=== PATIENT | female | born 1955 | race Caucasian/White ===

== ENCOUNTER 2019-02-01 08:03 | Day surgery (SDC) | payer MEDICARE, BC ==
[~2019-02-01 08:03] MED LIST: Lactated Ringers 1,000 ML IV SCH; Midazolam 1 MG/ML 2 ML SDV ONE; Propofol 200 MG/20 ML SDV ONE; Sodium Chloride 0.9% 10 ML SDV IV PRN; Sodium Chloride 0.9% 10 ML Syringe FLUSH PRN; Sodium Chloride 0.9% 2.5 ML Syringe FLUSH PRN
--- NOTE | 2019-02-01 09:17 | PCM.PREANE ---
Preanesthetic Assessment - Anesthesia/Transfusion/Family Hx Anesthesia History: Prior Anesthesia Without Reaction Family History of Anesthesia Reaction: No Transfusion History: Prior Transfusion Without Reaction Intubation History: Unknown - Review of Systems General: No Symptoms Pulmonary: No Symptoms Cardiovascular: No Symptoms Neurological: No Symptoms Other: Reports: None - Physical Assessment NPO Status Date: 01/31/19 Height: 5 ft 3 in Weight: 58.967 kg ASA Class: 2 Mental Status: Alert & Oriented x3 Airway Class: Mallampati = 2 Dentition: Reports: Normal Dentition ROM/Head Extension: Full Lungs: Clear to Auscultation, Normal Respiratory Effort Cardiovascular: Regular Rate, Regular Rhythm - Allergies Allergies/Adverse Reactions: Allergies Allergy/AdvReac Type Severity Reaction Status Date / Time aspirin Allergy Hives Verified 01/30/19 08:50 - Blood Blood Available: No - Anesthesia Plan Pre-Op Medication Ordered: None - Acknowledgements Anesthesia Type Planned: General Anesthesia Pt an Appropriate Candidate for the Planned Anesthesia: Yes Alternatives and Risks of Anesthesia Discussed w Pt/Guardian: Yes Pt/Guardian Understands and Agrees with Anesthesia Plan: Yes Additional Comments: PMH: prior hospital employee, smoker, htn, hld PLAN: tiva PreAnesthesia Questionnaire HEENT History: Reports: Cataract Cardiovascular History: Reports: High Cholesterol, Hypertension Other Respiratory History: has smoked for 40 years Gastrointestinal History: Reports: GERD Genitourinary History: Reports: 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: Musculoskeletal History: Reports: Back Pain, Chronic, Fracture Other Musculoskeletal History: hx of fx ribs Neurological History: Reports: Migraines Other Neuro History: no migraines for 10 years Endocrine/Metabolic History: Reports: None Hematologic History: Reports: Blood Transfusion(s) - Past Surgical History Female Surgical History: Reports: Other (See Below) Other Female Surgeries/Procedures: Laparoscopy - SUBSTANCE USE Smoking Status *Q: Current Every Day Smoker Tobacco Use Within Last Twelve Months: Cigarettes Recreational Drug Use History: No - HOME MEDS Home Medications: Home Meds Losartan Potassium 50 mg PO QAM 05/29/18 [History] Rosuvastatin Calcium 10 mg PO BEDTIME 05/29/18 [History] Pantoprazole [ProTONIX] 40 mg PO DAILY 01/30/19 [History] Sucralfate 1 gm PO QID 01/30/19 [History] - CURRENT (IN HOUSE) MEDS Current Meds: Current Medications Lactated Ringer's (Ringers, Lactated) 1,000 mls @ 125 mls/hr IV ASDIRECTED MARCELO Sodium Chloride (Saline Flush) 2.5 ml FLUSH ASDIRECTED PRN PRN Reason: Keep Vein Open Sodium Chloride (Normal Saline) 10 ml IV ASDIRECTED PRN PRN Reason: IV Use Discontinued Medications Midazolam HCl (Versed 1 Mg/Ml) Confirm Administered Dose 2 mg .ROUTE .STK-MED ONE Stop: 02/01/19 07:07 Propofol (Diprivan 20 Ml) Confirm Administered Dose 200 mg .ROUTE .STK-MED ONE Stop: 02/01/19 07:07
[2019-02-01] MEDS ORDERED: Lidocaine 2% 5 ML SDV ONE (10:18)
--- NOTE | 2019-02-01 10:50 | PCM.OPNOTE ---
- General Post-Op/Procedure Note Date of Surgery/Procedure: 02/01/19 Operative Procedure(s): Diagnostic EGD Findings: GERD, normal appearing esophagus Pre Op Diagnosis: GERD Post-Op Diagnosis: GERD Anesthesia Technique: MAC Primary Surgeon: Nickie Rivera Condition: Good
--- NOTE | 2019-02-01 11:22 | PCM.POSTAN ---
POST ANESTHESIA ASSESSMENT - MENTAL STATUS Mental Status: Alert, Oriented - RESPIRATORY Respiratory Status: Respiratory Rate WNL, Airway Patent, O2 Saturation Stable - CARDIOVASCULAR CV Status: Pulse Rate WNL, Blood Pressure Stable - GASTROINTESTINAL GI Status: No Symptoms - POST OP HYDRATION Hydration Status: Adequate & Stable
--- NOTE | 2019-02-01 11:22 | PCM48HPAN ---
Post Anesthesia Note - EVALUATION WITHIN 48HRS OF ANESTHETIC Vital Signs in Normal Range: Yes Patient Participated in Evaluation: Yes Respiratory Function Stable: Yes Airway Patent: Yes Cardiovascular Function Stable: Yes Hydration Status Stable: Yes Pain Control Satisfactory: Yes Nausea and Vomiting Control Satisfactory: Yes Mental Status Recovered: Yes Resp Rate: 14
--- NOTE | 2019-02-01 18:07 | OR ---
SURGEON: NICKIE RIVERA MD DATE OF PROCEDURE: 02/01/2019 PREOPERATIVE DIAGNOSIS: Gastroesophageal reflux disease. POSTOPERATIVE DIAGNOSIS: Gastroesophageal reflux disease. PROCEDURE PERFORMED: Diagnostic esophagogastroduodenoscopy. PRIMARY SURGEON: Endoscopist, Nickie Rivera MD. ANESTHESIA: MAC. INSTRUMENT USED: Olympus endoscope. EXTENT OF EXAM: To the second portion of duodenum. PREPARATION: Good. LIMITATIONS: None. INDICATION FOR EXAMINATION: The patient is a 63-year-old female who presents with retrosternal burning, refractory to [id number] PPI treatment. Recent esophagram showed mild presbyesophagus and moderate reflux as well as a small cardiac diverticula. She was switched to pantoprazole, but again is having no relief in her symptoms. The decision was made to perform a diagnostic EGD. I explained the procedure, expected perioperative course, and risks including bleeding, infection, or damage to surrounding structures including perforation. The patient verbalized understanding and wishes to proceed. PROCEDURE IN DETAIL: The patient was brought into the endoscopy suite and placed in a beach chair position. A time-out was completed verifying the patient's name, age, date of , allergies, and procedure to be performed. Monitored anesthesia care was induced and a bite block was placed in the patient's mouth. Continuous oxygen was provided via nasal cannula throughout the procedure. After adequate sedation was achieved, a well lubricated endoscope was placed in the patient's mouth and advanced under direct visualization to the second portion of duodenum. This appeared normal and a photograph was taken. The scope was then fully withdrawn while examining the color, texture, anatomy, and integrity of the mucosa of the upper GI tract. The duodenum appeared normal. The scope was then brought into the stomach and a photograph taken of the pylorus as well as the GE junction. The patient was found to have a small outpouching next to the GE junction. This appeared healthy and broad-based. Biopsies were taken of the gastric antrum, body, and fundus, and sent for histologic review and H. pylori testing, but overall the gastric mucosa appeared normal. The scope was then brought into the distal esophagus and a photograph was taken of the Z-line. There was no evidence of distal esophagitis or ulceration. A biopsy was taken 2 cm above the Z-line of the esophageal mucosa and sent to pathology. The remainder of the esophagus was normal. The scope was removed and the procedure terminated. The patient tolerated the procedure well and was taken to PACU in stable condition. ENDOSCOPIC DIAGNOSIS: Gastroesophageal reflux disease. RECOMMENDATIONS: Follow up in clinic in 2 weeks. TAI SINGH /[id number]
== END 2019-02-01 11:30 | disposition home or self-care (01) ==
LOC: MW.SDS 08:03
PROVIDERS: ATTEND Surgery
DX: K21.0 Gastro-esophageal reflux disease with esophagitis (principal); K22.8 Other specified diseases of esophagus; K31.4 Gastric diverticulum; K29.50 Unspecified chronic gastritis without bleeding; I10 Essential (primary) hypertension; E78.00 Pure hypercholesterolemia, unspecified; K21.9 Gastro-esophageal reflux disease without esophagitis; F17.210 Nicotine dependence, cigarettes, uncomplicated; Z88.6 Allergy status to analgesic agent; Z79.899 Other long term (current) drug therapy
CPT/HCPCS: 43239; J2001; J2250; J2704; J7120; 88305; 88312

== ENCOUNTER 2019-04-11 23:15 | Inpatient (IN) | payer MEDICARE, BC ==
[2019-04-11] MEDS ORDERED: Ketorolac 30 MG/ML SDV IVPUSH ONE (23:30)
[2019-04-11] MEDS ORDERED: Sodium Chloride 0.9% 10 ML Syringe FLUSH PRN (23:30)
[2019-04-11] MEDS ORDERED: Sodium Chloride 0.9% 1,000 ML IV ONE (23:30)
[2019-04-11] MEDS ORDERED: Sodium Chloride 0.9% 2.5 ML Syringe FLUSH PRN (23:30)
[2019-04-11] MEDS ORDERED: LORazepam 2 MG/ML SDV IVPUSH ONE (23:30)
--- NOTE | 2019-04-11 23:36 | EDM.PDOC ---
ED HPI GENERAL MEDICAL PROBLEM - General Chief Complaint: Chest Pain Stated Complaint: CHEST PAIN Time Seen by Provider: 04/11/19 23:19 - History of Present Illness INITIAL COMMENTS - FREE TEXT/NARRATIVE: HISTORY AND PHYSICAL: History of present illness: The patient is a 63-year-old female who has been following with Dr. Nassar in the clinic as well as our train engineer Dr. Andrade for burning chest pain that has been episodic since the summer and now presents to the ED with similar. The patient initially had EGD performed in [place] and was diagnosed with esophagitis and GERD and was placed on medications which include Protonix and sucralfate. After that test did not yield an answer to her symptoms she then met with our train engineer and had an outpatient echocardiogram and a Cardiolite stress test on April 03. I reviewed those results and the echo revealed an EF of 55-60% and trace tricuspid valve regurg but otherwise no abnormalities and her Cardiolite stress test revealed an ejection fraction of 70% and no acute ischemic changes. A cough with wheezing and saw Dr. Nassar on Monday and had a chest x-ray and was diagnosed with bronchitis. She was placed on antibiotic steroid and inhaler and says she is feeling better. The patient says that she is a smoker of less than one pack per day for many years and denies drug use. She also tells me that Dr. Nassar has been following her WBC count as it has been mildly elevated consistently for the last few months with an eosinophilic shift and he is not sure what to make of that. The patient comes in this evening saying that she is having muscle cramps and spasms in her right thigh area and after that starts to occur she gets the chest discomfort in her mid chest without radiation. She's not having any shortness of breath fevers chills abdominal pain nausea or vomiting and she is eating and drinking normally. She states that her upper respiratory symptoms of earlier this week are improving. She denies any numbness tingling or weakness in her legs and says that it's only her right lower extremity that has this cramping episodic pain. She has not noticed any swelling of the leg in changes. She is not having any lower back pain or neck pain and denies any trauma. She says that with the coughing last week and over the weekend she has had some right-sided chest pain because she thinks she coughed very hard. She took Tylenol prior to coming here but nothing else. She tells me that she has spoken with Dr. Nassar about the muscle cramping in her right leg which is not new today and has been ongoing for the last several weeks. She is telling me that the chest discomfort and the leg cramps that she is having are both not new or different than prior episodes but she feels like that they were more intense and did not respond to the Tylenol. The patient also tells me that she has had back issues in the past but has never had an MRI only x-rays with the chiropractor and in fact went to the chiropractor today and says that she felt like a muscle spasm in her leg was better. She has never been diagnosed with disc disease or sciatica. When I push her she says that there is discomfort at her right hip and it seems to go to the lateral thigh. Down her leg nor is she having any bowel or bladder disturbances. The patient denies that she has had any fevers Review of systems: As per history of present illness and below otherwise all systems reviewed and negative. Past medical history: As per history of present illness and as reviewed below otherwise noncontributory. Surgical history: As per history of present illness and as reviewed below otherwise noncontributory. Social history: No reported history of drug or alcohol abuse. Family history: As per history of present illness and as reviewed below otherwise noncontributory. Physical exam: General: Well-developed well-nourished thin female who is nontoxic and vital signs were noted by me. She is moving all extremities without defects or deficits HEENT: Atraumatic, normocephalic, pupils reactive, negative for conjunctival pallor or scleral icterus, mucous membranes moist, throat clear, neck supple, nontender, trachea midline. Lungs: Clear to auscultation, breath sounds equal bilaterally, chest with some mild discomfort which is reproducible on palpation of the upper anterior chest wall area in the sternal area but there are no defects deformities crepitus. There is no wheezing stridor or work of breathing Heart: S1S2, regular, negative for clicks, rubs, or JVD. Abdomen: Soft, nondistended, nontender. Negative for masses or hepatosplenomegaly. NeABS Pelvis: Stable nontender. Genitourinary: Deferred. Rectal: Deferred. Extremities: Atraumatic, negative for cords or calf pain. Neurovascular unremarkable.There is no pedal edema or leg asymmetry and more specifically at the right lower extremity there are no palpable bony deformities no soft tissue or compartment swelling and no soft tissue changes. The patient is able to passively and actively range of motion at the hip without much discomfort and there is no joint fluid fullness warmth or effusion. Neuro: Awake, alert, oriented. Cranial nerves II through XII unremarkable. Cerebellum unremarkable. Motor and sensory unremarkable throughout. Exam nonfocal. The patient has a strong femoral pulse on the right and has triphasic dorsalis pedis and posterior tibial arteries on Doppler and there is no evidence of any soft tissue changes compartment swelling or temperature changes. Diagnostics: EKG chest x-ray CBC CMP CPK troponin TSH magnesium level lactic acid UA with reflex CRP sedimentation rate blood culture 2 X-ray of right hip with pelvis, CT scan of the lumbar spine CTA chest Therapeutics: IV fluids Ativan Toradol Patient mentioned to me that her last CBC revealed a WBC count that was elevated in the computer it is 14.89. This test was performed on April [address] Nassar. There was a 10% eosinophil count and Dr. Nassar did not know what to make of that. Today her WBC count is higher at 16.61 but there is no significant elevation of the eosinophil count. All testing results were discussed with the patient and with Dr. Rajput at 1:50 AM. At this point her leg pain is likely attributed to her degenerative disc space and sclerosis of her L4-L5 region and her chest pain is likely attributed to this mediastinal mass. Dr. Rajput has agreed to admit the patient for observation to repeat her lab values and to follow-up on the cultures. At this point he would likely not to place her on any antibiotics as of this may skew her numbers and the patient is already taking and antibiotic that Dr. Nassar gave her on Monday but she is unsure of the name. She is aware that this mediastinal mass does need to be addressed and at this point I do not have the ability to transport her to [place] to have this done emergently nor does Dr. Rajput nor I feel that this needs to be done emergently. We will admit her here and follow her numbers and pending those results and any culture results plan for transfer to [place] for more immediate hematology oncology consultation or connect her with outpatient hematology oncology. The patient is aware of these conversation and care plan. Impression: Lower extremity cramping and atypical chest pain episodic acute on chronic; L4- L5 disc space narrowing with sclerotic changes/degenerative disc disease Mediastinal mass with leukocytosis, etiology unclear Definitive disposition and diagnosis as appropriate pending reevaluation and review of above. chest/right leg Pain Score (Numeric/FACES): 9 - Related Data Allergies Allergy/AdvReac Type Severity Reaction Status Date / Time aspirin Allergy Hives Verified 04/11/19 23:24 Home Meds: Home Meds Losartan Potassium 50 mg PO QAM 05/29/18 [History] Rosuvastatin Calcium 10 mg PO BEDTIME 05/29/18 [History] Famotidine 20 mg PO DAILY 04/11/19 [History] Nortriptyline 10 mg PO BEDTIME 04/11/19 [History] Past Medical History HEENT History: Reports: Cataract Cardiovascular History: Reports: High Cholesterol, Hypertension Other Respiratory History: has smoked for 40 years Gastrointestinal History: Reports: GERD Genitourinary History: Reports: 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 ED EXAM, GENERAL - Physical Exam Exam: See Below (See dictation) Course - Vital Signs Last Recorded V/S: Last Vital Signs Temp 35.9 C 04/11/19 23:15 Pulse 70 04/12/19 02:02 Resp 14 04/12/19 02:02 BP 123/58 L 04/12/19 02:02 Pulse Ox 98 04/12/19 02:02 - Orders/Labs/Meds Orders: Active Orders 24 hr Category Date Time Status Patient Status [ADT] Stat ADT 04/12/19 02:03 Active Cardiac Monitoring [RC] . DIRECTED Care 04/11/19 23:28 Active EKG Documentation Completion [RC] STAT Care 04/11/19 23:28 Active Oxygen Therapy, ED [RC] ASDIRECTED Care 04/11/19 23:28 Active Pulse Oximetry [RC] ASDIRECTED Care 04/11/19 23:28 Active CULTURE BLOOD [BC] Stat Lab 04/12/19 00:37 Received CULTURE BLOOD [BC] Stat Lab 04/12/19 00:48 Results UA RFX FABIO AND CULT IF INDIC [URIN] Stat Lab 04/11/19 23:29 Ordered Sodium Chloride 0.9% [Saline Flush] Med 04/11/19 23:30 Active 10 ml FLUSH ASDIRECTED PRN Sodium Chloride 0.9% [Saline Flush] Med 04/11/19 23:30 Active 2.5 ml FLUSH ASDIRECTED PRN Blood Culture x2 Reflex Set [OM.PC] Stat Oth 04/12/19 00:34 Ordered Saline Lock Insert [OM.PC] Stat Oth 04/11/19 23:28 Ordered Medication Orders Sodium Chloride (Saline Flush) 10 ml FLUSH ASDIRECTED PRN PRN Reason: Keep Vein Open Last Admin: 04/11/19 23:39 Dose: 10 ml Sodium Chloride (Saline Flush) 2.5 ml FLUSH ASDIRECTED PRN PRN Reason: Keep Vein Open Last Admin: 04/11/19 23:38 Dose: 2.5 ml Labs: Laboratory Tests 04/11/19 04/11/19 04/11/19 Range/Units 23:26 23:26 23:26 WBC 16.61 H (4.0-11.0) K/uL RBC 4.40 (4.30-5.90) M/uL Hgb 13.1 (12.0-16.0) g/dL Hct 38.6 (36.0-46.0) % MCV 87.7 (80.0-98.0) fL MCH 29.8 (27.0-32.0) pg MCHC 33.9 (31.0-37.0) g/dL RDW Std Deviation 47.5 (28.0-62.0) fl RDW Coeff of Citlaly 15 (11.0-15.0) % Plt Count 462 H (150-400) K/uL MPV 10.00 (7.40-12.00) fL Neut % (Auto) 76.2 (48.0-80.0) % Lymph % (Auto) 17.0 (16.0-40.0) % [place] % (Auto) 6.7 (0.0-15.0) % Eos % (Auto) 0.0 (0.0-7.0) % Baso % (Auto) 0.1 (0.0-1.5) % Neut # (Auto) 12.7 H (1.4-5.7) K/uL Lymph # (Auto) 2.8 H (0.6-2.4) K/uL [place] # (Auto) 1.1 H (0.0-0.8) K/uL Eos # (Auto) 0.0 (0.0-0.7) K/uL Baso # (Auto) 0.0 (0.0-0.1) K/uL Nucleated RBC % 0.0 /100WBC Nucleated RBCs # 0 K/uL ESR (0-29) mm/hr Lactate 3.4 H (0.20-2.00) mmol/L Sodium 138 (136-145) mmol/L Potassium 4.3 (3.5-5.1) mmol/L Chloride 102 (98-107) mmol/L Carbon Dioxide 23.8 (21.0-32.0) mmol/L BUN 21 H (7.0-18.0) mg/dL Creatinine 1.1 H (0.6-1.0) mg/dL Est Cr Clr Drug Dosing TNP Estimated GFR (MDRD) 49.8 ml/min Glucose 147 H (74-106) mg/dL Calcium 10.3 H (8.5-10.1) mg/dL Magnesium 2.3 (1.8-2.4) mg/dL Total Bilirubin 0.3 (0.2-1.0) mg/dL AST 44 H (15-37) IU/L ALT 29 (14-63) IU/L Alkaline Phosphatase 126 H (46-116) U/L Creatine Kinase 41 (26-308) U/L Troponin I < 0.050 (0.000-0.056) ng/mL C-Reactive Protein (0.00-0.90) mg/dL Total Protein 7.6 (6.4-8.2) g/dL Albumin 3.5 (3.4-5.0) g/dL Globulin 4.1 H (2.6-4.0) g/dL Albumin/Globulin Ratio 0.9 (0.9-1.6) TSH 3rd Generation 0.97 (0.36-3.74) uIU/mL 04/11/19 04/11/19 Range/Units 23:26 23:26 WBC (4.0-11.0) K/uL RBC (4.30-5.90) M/uL Hgb (12.0-16.0) g/dL Hct (36.0-46.0) % MCV (80.0-98.0) fL MCH (27.0-32.0) pg MCHC (31.0-37.0) g/dL RDW Std Deviation (28.0-62.0) fl RDW Coeff of Citlaly (11.0-15.0) % Plt Count (150-400) K/uL MPV (7.40-12.00) fL Neut % (Auto) (48.0-80.0) % Lymph % (Auto) (16.0-40.0) % [place] % (Auto) (0.0-15.0) % Eos % (Auto) (0.0-7.0) % Baso % (Auto) (0.0-1.5) % Neut # (Auto) (1.4-5.7) K/uL Lymph # (Auto) (0.6-2.4) K/uL [place] # (Auto) (0.0-0.8) K/uL Eos # (Auto) (0.0-0.7) K/uL Baso # (Auto) (0.0-0.1) K/uL Nucleated RBC % /100WBC Nucleated RBCs # K/uL ESR 57 H (0-29) mm/hr Lactate (0.20-2.00) mmol/L Sodium (136-145) mmol/L Potassium (3.5-5.1) mmol/L Chloride (98-107) mmol/L Carbon Dioxide (21.0-32.0) mmol/L BUN (7.0-18.0) mg/dL Creatinine (0.6-1.0) mg/dL Est Cr Clr Drug Dosing Estimated GFR (MDRD) ml/min Glucose (74-106) mg/dL Calcium (8.5-10.1) mg/dL Magnesium (1.8-2.4) mg/dL Total Bilirubin (0.2-1.0) mg/dL AST (15-37) IU/L ALT (14-63) IU/L Alkaline Phosphatase (46-116) U/L Creatine Kinase (26-308) U/L Troponin I (0.000-0.056) ng/mL C-Reactive Protein 0.60 (0.00-0.90) mg/dL Total Protein (6.4-8.2) g/dL Albumin (3.4-5.0) g/dL Globulin (2.6-4.0) g/dL Albumin/Globulin Ratio (0.9-1.6) TSH 3rd Generation (0.36-3.74) uIU/mL Meds: Medications Generic Name Dose Route Start Last Admin Trade Name Sergeiq PRN Reason Stop Dose Admin Sodium Chloride 10 ml 04/11/19 23:30 04/11/19 23:39 Saline Flush FLUSH 10 ml ASDIRECTED PRN Administration Keep Vein Open Sodium Chloride 2.5 ml 04/11/19 23:30 04/11/19 23:38 Saline Flush FLUSH 2.5 ml ASDIRECTED PRN Administration Keep Vein Open Discontinued Medications Generic Name Dose Route Start Last Admin Trade Name Freq PRN Reason Stop Dose Admin Sodium Chloride 1,000 mls @ 999 mls/hr 04/11/19 23:30 04/11/19 23:38 Normal Saline IV 04/12/19 00:30 999 mls/hr STAT ONE Administration Iopamidol 50 ml 04/12/19 00:51 04/12/19 00:51 Isovue Multipack-370 (76%) IVPUSH 04/12/19 00:52 50 ml ONETIME ONE Administration Ketorolac Tromethamine 30 mg 04/11/19 23:30 04/11/19 23:40 Toradol IVPUSH 04/11/19 23:31 30 mg ONETIME ONE Administration Lorazepam 0.5 mg 04/11/19 23:30 04/11/19 23:39 Ativan IVPUSH 04/11/19 23:31 0.5 mg ONETIME ONE Administration Departure - Departure Time of Disposition: 02:15 Disposition: Refer to Observation Condition: Good Clinical Impression: Mediastinal mass Leukocytosis Qualifiers: Leukocytosis type: unspecified Qualified Code(s): D72.829 - Elevated white blood cell count, unspecified - Discharge Information Referrals: Wilner Nassar MD [Primary Care Provider] - Forms: ED Department Discharge - My Orders Last 24 Hours: My Active Orders 04/11/19 23:28 Cardiac Monitoring [RC] . DIRECTED EKG Documentation Completion [RC] STAT Oxygen Therapy, ED [RC] ASDIRECTED Pulse Oximetry [RC] ASDIRECTED Saline Lock Insert [OM.PC] Stat 04/11/19 23:29 UA RFX FABIO AND CULT IF INDIC [URIN] Stat 04/11/19 23:30 Sodium Chloride 0.9% [Saline Flush] 10 ml FLUSH ASDIRECTED PRN Sodium Chloride 0.9% [Saline Flush] 2.5 ml FLUSH ASDIRECTED PRN 04/12/19 00:34 Blood Culture x2 Reflex Set [OM.PC] Stat 04/12/19 00:37 CULTURE BLOOD [BC] Stat 04/12/19 00:48 CULTURE BLOOD [BC] Stat 04/12/19 02:03 Patient Status [ADT] Stat - Assessment/Plan Last 24 Hours: My Active Orders 04/11/19 23:28 Cardiac Monitoring [RC] . DIRECTED EKG Documentation Completion [RC] STAT Oxygen Therapy, ED [RC] ASDIRECTED Pulse Oximetry [RC] ASDIRECTED Saline Lock Insert [OM.PC] Stat 04/11/19 23:29 UA RFX FABIO AND CULT IF INDIC [URIN] Stat 04/11/19 23:30 Sodium Chloride 0.9% [Saline Flush] 10 ml FLUSH ASDIRECTED PRN Sodium Chloride 0.9% [Saline Flush] 2.5 ml FLUSH ASDIRECTED PRN 04/12/19 00:34 Blood Culture x2 Reflex Set [OM.PC] Stat 04/12/19 00:37 CULTURE BLOOD [BC] Stat 04/12/19 00:48 CULTURE BLOOD [BC] Stat 04/12/19 02:03 Patient Status [ADT] Stat
[2019-04-12 00:12] LABS: BLOOD UREA NITROGEN,BUN 21 mg/dL (7.0-18.0); CARBON DIOXIDE,CO2 23.8 mmol/L (21.0-32.0); CHLORIDE,CL 102 mmol/L (98-107); GLUCOSE RANDOM 147 mg/dL (74-106); POTASSIUM,K 4.3 mmol/L (3.5-5.1); SODIUM,NA 138 mmol/L (136-145)
--- NOTE | 2019-04-12 00:27 | CR ---
INDICATION: Right hip pain TECHNIQUE: AP pelvis and two views right hip COMPARISON: None FINDINGS: Bones: Alignment is normal. No fractures or bone lesions. Joint spaces: Unremarkable. Soft tissues: Unremarkable. IMPRESSION: Negative. Dictated by Pascual Bunn MD @ 04/12/2019 12:24:00 AM Dictated by: Pascual Bunn MD @ 04/12/2019 00:24:05 (Electronically Signed)
--- NOTE | 2019-04-12 00:31 | CR ---
Indication: Chest pain Technique: Chest 1 view Comparison: April 09, 2019 Findings/Impression: Normal cardiac size. There is some increased density surrounding the aortic arch. This appears more prominent when compared to the prior study. Although this could represent normal overlapping vascular structures, consider chest CT with IV contrast for further evaluation. Lungs are mildly hyperexpanded. No focal infiltrate, effusion, or pneumothorax. No acute osseous abnormality. Dictated by Sharyn Lucio MD @ Apr 12 2019 12:29AM Signed by Dr. Sharyn Lucio @ Apr 12 2019 12:29AM
--- NOTE | 2019-04-12 00:33 | CT ---
INDICATION: Low back pain. TECHNIQUE: CT of the lumbar spine without contrast. Coronal and sagittal reformats are included. COMPARISON: None. FINDINGS: Five lumbar type vertebral bodies. Mild levoconvex scoliosis with the apex at L3. No definite acute fractures. Age indeterminate although likely chronic T11 superior endplate compression fracture with superimposed central Schmorl`s node. Minimal vertebral body height loss. No fractures elsewhere. Cystic structure within the right adnexa measures up to 3.4 centimeters and is likely ovarian in origin. Partially visualized left renal cyst. Findings at individual levels as follows: Interspaces: Mild disc height loss at L1-2 and L2-3. Moderate disc height loss at L3-4. Advanced disc height loss at L4-5 and L5-S1. Subchondral sclerosis and degenerative endplate irregularity is present prominently at L4-5 as well as to a lesser degree within the anterior inferior L3 endplate. Spinal canal and neural foramina: T12-L1: No spinal canal or neural foraminal narrowing L1-2: Mild disc bulge. Mild bilateral facet hypertrophy. No substantial spinal canal or neural foraminal narrowing. L2-3: Mild disc bulge. Moderate bilateral facet hypertrophy. No substantial spinal canal or neural foraminal narrowing. L3-4: Moderate disc bulge and trace retrolisthesis. Mild bilateral facet hypertrophy. Mild spinal canal narrowing. Mild bilateral neural foraminal narrowing. L4-5: Moderate eccentric right-sided disc bulge with accompanying endplate osteophytes on the right. Mild left and moderate right facet hypertrophy. Mild spinal canal narrowing. Mild left and moderate right neural foraminal narrowing. L5-S1: Mild circumferential disc bulge. Mild bilateral facet hypertrophy. Mild right and moderate left neural foraminal narrowing. No substantial spinal canal narrowing. Imaged SI joints: Mild arthrosis. Imaged sacrum: No focal lesions. IMPRESSION: 1. No definite acute fractures. Age-indeterminate although likely chronic T11 superior endplate fracture with superimposed central Schmorl`s node and overall mild vertebral body height loss. No traumatic lumbar malalignment. 2. Mild levoconvex scoliosis with apex at L3. 3. Multilevel lumbar spondylosis with disc degeneration most advanced at the L4-5 level. 4. At L4-5, there is moderate right neural foraminal narrowing. 5. At L5-S1, there is moderate left neural foraminal narrowing. 6. Scattered additional sites of low-grade neural foraminal narrowing at the remaining lumbar levels. 7. No high-grade spinal canal stenosis. Mild spinal canal stenosis at L3-4 and L4-5. 8. 3.4 centimeter cystic structure within the right adnexa is likely ovarian in origin. Given the patient`s age, consider further characterization with ultrasound. Please note that all CT scans at this facility use dose modulation, iterative reconstruction, and/or weight-based dosing when appropriate to reduce radiation dose to as low as reasonably achievable. Dictated by Louis Mike MD @ Apr 13 2019 8:56AM Signed by Dr. Louis Mike @ Apr 13 2019 9:09AM
[2019-04-12] MEDS ORDERED: Iopamidol 755 MG/ML 500 ML Multipack Bottle IVPUSH ONE (00:51)
--- NOTE | 2019-04-12 01:34 | CT ---
INDICATION: Chest pain TECHNIQUE: CT chest pulmonary angiogram acquired with IV contrast. 50 cc Isovue 370 COMPARISON: None FINDINGS: Cardiovascular structures: Diagnostics no sick study for pulmonary embolus due to suboptimal opacification the pulmonary arteries. Heart size is normal. No sign of aneurysm or dissection in the thoracic aorta. Mediastinum and shaneka: 7.0 centimeter x 5.5 centimeter non enhancing anterior mediastinal mass. This is not appear to emanate from the thyroid gland. Lungs: Clear. Pleura and pericardium: No effusions. Chest wall and axilla: No mass or adenopathy. Bones: No significant findings. Upper abdomen: Unremarkable. IMPRESSION: 7.0 centimeter x 5.5 centimeter non enhancing anterior mediastinal mass. This does not appear to be contiguous with the thyroid gland. Correlate with myelogenous disease clinically. Nondiagnostic study for pulmonary embolus. Normal appearing thoracic aorta. Dictated by Pascual Bunn MD @ 04/12/2019 1:33:32 AM Please note that all CT scans at this facility use dose modulation, iterative reconstruction, and/or weight-based dosing when appropriate to reduce radiation dose to as low as reasonably achievable. Dictated by: Pacsual Bunn MD @ 04/12/2019 01:33:39 (Electronically Signed)
[2019-04-12] MEDS ORDERED: Acetaminophen 325 MG Tab PO PRN (03:11)
[2019-04-12] MEDS: cefTRIAXone 1 GM in Sodium Chloride 0.9% 50 ML IV SCH (03:26)
[2019-04-12] MEDS: Sodium Chloride 0.9% 1,000 ML IV SCH ×3 (03:27→20:37)
[2019-04-12 06:53] LABS: POTASSIUM,K 4.9 mmol/L (3.5-5.1)
[2019-04-12] MEDS: Morphine 2 MG/ML Syringe IVPUSH PRN ×2 (08:39→13:25)
--- NOTE | 2019-04-12 09:41 | PCM.HP.2 ---
H&P History of Present Illness - General Date of Service: 04/12/19 Admit Problem/Dx: Admission Diagnosis/Problem Admission Diagnosis/Problem Leukocytosis Source of Information: Patient History Limitations: Reports: No Limitations - History of Present Illness Initial Comments - Free Text/Narative: This 63 reji old female with pmh of tobacco use for 40+ years, HTN, dyslipidemia and GERD presented to the ED with chest pain. She was seen by PCP 3 days ago with wheezing and increased sputum production, she was started on inhaler, Doxycycline and Dexamethasone for bronchitis. CXR then was negative for infiltrate. She reports this pain is across her chest and is a heaviness and "bubbly" feeling inside at times. She denies fevers at home. Reports increase green sputum at times. She has had extensive testing for GERD with EGD and biopsies. She was noted to have gastritis and take Famotidine for this. She also reported leg pain that is in the posterior thigh and hurts worse when she is going from a sitting to standing position. She denies back pain sore from where she saw the chiropractor. No numbness or tingling to leg. No loss of sensation. Is able to bend leg without significant increase in pain. In the ED leukocytosis noted at 16,610, hgb 13.1, platelets 462, lactate elevated at 3.4. BUN 21, Cr 1.1 AST 44, Alk phos 126. UA negative. CXR obtained which revealed mild fullness in mediastinal region, CT chest with contrast recommended, this was obtained and revealed a 7.0 x 5.5 cm anterior mediastinal mass. She was treated with IVFs, and pain medication. Admitted observation for chest pain and new mediastinal mass. PCP, Dr Nassar. right leg Pain Score (Numeric/FACES): 8 - Related Data Allergies/Adverse Reactions: Allergies Allergy/AdvReac Type Severity Reaction Status Date / Time aspirin Allergy Hives Verified 04/12/19 03:19 Home Medications: Home Meds Losartan Potassium 50 mg PO QAM 05/29/18 [History] Rosuvastatin Calcium 10 mg PO BEDTIME 05/29/18 [History] Famotidine 20 mg PO DAILY 04/11/19 [History] Nortriptyline 10 mg PO BEDTIME 04/11/19 [History] Albuterol Sulfate [Albuterol Sulfate Hfa] 2 puff Q8HR 04/12/19 [History] Doxycycline [Vibramycin] 100 mg BIDPC 04/12/19 [History] dexAMETHasone [Dexamethasone] 4 mg PO BID 04/12/19 [History] Past Medical History HEENT History: Reports: Cataract Cardiovascular History: Reports: High Cholesterol, Hypertension Other Respiratory History: has smoked for 40 years Gastrointestinal History: Reports: GERD Genitourinary History: Reports: None FRONT FACER History: Reports: Musculoskeletal History: Reports: Back Pain, Chronic, Fracture Other Musculoskeletal History: hx of fx ribs Neurological History: Reports: Other (See Below) Other Neuro History: hx of motion sickness Endocrine/Metabolic History: Reports: None. Denies: Diabetes, Type II Hematologic History: Reports: Blood Transfusion(s) - Infectious Disease History Infectious Disease History: Reports: Chicken Pox - Past Surgical History GI Surgical History: Reports: Colonoscopy, EGD Female Surgical History: Reports: Other (See Below) Other Female Surgeries/Procedures: Laparoscopy Social & Family History - Family History Family Medical History: Noncontributory - Tobacco Use Smoking Status *Q: Current Every Day Smoker Years of Tobacco use: 40 Packs/Tins Daily: 1 Used Tobacco, but Quit: No Second Hand Smoke Exposure: No - Caffeine Use Caffeine Use: Reports: Coffee - Alcohol Use Alcohol Use History: No Alcohol Use Frequency: Rarely - Recreational Drug Use Recreational Drug Use: No H&P Review of Systems - Review of Systems: Review Of Systems: See Below General: Reports: Malaise, Weakness, Fatigue. Denies: Fever, Chills HEENT: Denies: Headaches, Sinus Congestion, Sore Throat Pulmonary: Reports: Shortness of Breath, Wheezing, Pleuritic Chest Pain, Cough, Sputum. Denies: Hemoptysis Cardiovascular: Reports: Chest Pain (across chest) Gastrointestinal: Reports: No Symptoms. Denies: Abdominal Pain, Black Stool, Bloody Stool, Nausea, Vomiting Genitourinary: Reports: No Symptoms. Denies: Dysuria, Frequency, Burning Musculoskeletal: Reports: Leg Pain (R posterior thigh pain) Skin: Reports: No Symptoms Psychiatric: Reports: No Symptoms Neurological: Reports: No Symptoms Hematologic/Lymphatic: Reports: No Symptoms Immunologic: Reports: No Symptoms Exam - Exam Exam: See Below - Vital Signs Vital Signs: Last Vital Signs Temp 98 F 04/12/19 07:05 Pulse 65 04/12/19 07:05 Resp 18 04/12/19 07:05 BP 140/67 04/12/19 07:05 Pulse Ox 96 04/12/19 07:05 Weight: 54.749 kg - Exam General: Alert, Oriented Neck: Supple, Trachea Midline, Full Range of Motion. No: Lymphadenopathy Lungs: Normal Respiratory Effort, Rhonchi, Wheezing Cardiovascular: Regular Rate, Regular Rhythm, Normal S1, Normal S2 GI/Abdominal Exam: Normal Bowel Sounds, Soft, Non-Tender Extremities: Normal Inspection, Normal Range of Motion, Other (tenderness to upper calf) Neuro Extensive - Mental Status: Alert, Oriented x3, Normal Mood/Affect Neuro Extensive - Motor, Sensory, Reflexes: CN II-XII Intact Psychiatric: Alert, Normal Affect, Normal Mood - Patient Data Lab Results Last 24 hrs: Laboratory Results - last 24 hr 04/11/19 04/11/19 04/11/19 Range/Units 23:26 23:26 23:26 WBC 16.61 H (4.0-11.0) K/uL RBC 4.40 (4.30-5.90) M/uL Hgb 13.1 (12.0-16.0) g/dL Hct 38.6 (36.0-46.0) % MCV 87.7 (80.0-98.0) fL MCH 29.8 (27.0-32.0) pg MCHC 33.9 (31.0-37.0) g/dL RDW Std Deviation 47.5 (28.0-62.0) fl RDW Coeff of Citlaly 15 (11.0-15.0) % Plt Count 462 H (150-400) K/uL MPV 10.00 (7.40-12.00) fL Neut % (Auto) 76.2 (48.0-80.0) % Lymph % (Auto) 17.0 (16.0-40.0) % [place] % (Auto) 6.7 (0.0-15.0) % Eos % (Auto) 0.0 (0.0-7.0) % Baso % (Auto) 0.1 (0.0-1.5) % Neut # (Auto) 12.7 H (1.4-5.7) K/uL Lymph # (Auto) 2.8 H (0.6-2.4) K/uL [place] # (Auto) 1.1 H (0.0-0.8) K/uL Eos # (Auto) 0.0 (0.0-0.7) K/uL Baso # (Auto) 0.0 (0.0-0.1) K/uL Nucleated RBC % 0.0 /100WBC Nucleated RBCs # 0 K/uL ESR (0-29) mm/hr Lactate 3.4 H (0.20-2.00) mmol/L Sodium 138 (136-145) mmol/L Potassium 4.3 (3.5-5.1) mmol/L Chloride 102 (98-107) mmol/L Carbon Dioxide 23.8 (21.0-32.0) mmol/L BUN 21 H (7.0-18.0) mg/dL Creatinine 1.1 H (0.6-1.0) mg/dL Est Cr Clr Drug Dosing TNP Estimated GFR (MDRD) 49.8 ml/min Glucose 147 H (74-106) mg/dL Calcium 10.3 H (8.5-10.1) mg/dL Magnesium 2.3 (1.8-2.4) mg/dL Total Bilirubin 0.3 (0.2-1.0) mg/dL AST 44 H (15-37) IU/L ALT 29 (14-63) IU/L Alkaline Phosphatase 126 H (46-116) U/L Creatine Kinase 41 (26-308) U/L Troponin I < 0.050 (0.000-0.056) ng/mL C-Reactive Protein (0.00-0.90) mg/dL Total Protein 7.6 (6.4-8.2) g/dL Albumin 3.5 (3.4-5.0) g/dL Globulin 4.1 H (2.6-4.0) g/dL Albumin/Globulin Ratio 0.9 (0.9-1.6) TSH 3rd Generation 0.97 (0.36-3.74) uIU/mL Urine Color Urine Appearance Urine pH (5.0-8.0) Ur Specific [place] (1.001-1.035) Urine Protein (NEGATIVE) mg/dL Urine Glucose (UA) (NEGATIVE) mg/dL Urine Ketones (NEGATIVE) mg/dL Urine Occult Blood (NEGATIVE) Urine Nitrite (NEGATIVE) Urine Bilirubin (NEGATIVE) Urine Urobilinogen (<2.0) EU/dL Ur Leukocyte Esterase (NEGATIVE) 04/11/19 04/11/19 04/12/19 Range/Units 23:26 23:26 02:20 WBC (4.0-11.0) K/uL RBC (4.30-5.90) M/uL Hgb (12.0-16.0) g/dL Hct (36.0-46.0) % MCV (80.0-98.0) fL MCH (27.0-32.0) pg MCHC (31.0-37.0) g/dL RDW Std Deviation (28.0-62.0) fl RDW Coeff of Citlaly (11.0-15.0) % Plt Count (150-400) K/uL MPV (7.40-12.00) fL Neut % (Auto) (48.0-80.0) % Lymph % (Auto) (16.0-40.0) % [place] % (Auto) (0.0-15.0) % Eos % (Auto) (0.0-7.0) % Baso % (Auto) (0.0-1.5) % Neut # (Auto) (1.4-5.7) K/uL Lymph # (Auto) (0.6-2.4) K/uL [place] # (Auto) (0.0-0.8) K/uL Eos # (Auto) (0.0-0.7) K/uL Baso # (Auto) (0.0-0.1) K/uL Nucleated RBC % /100WBC Nucleated RBCs # K/uL ESR 57 H (0-29) mm/hr Lactate (0.20-2.00) mmol/L Sodium (136-145) mmol/L Potassium (3.5-5.1) mmol/L Chloride (98-107) mmol/L Carbon Dioxide (21.0-32.0) mmol/L BUN (7.0-18.0) mg/dL Creatinine (0.6-1.0) mg/dL Est Cr Clr Drug Dosing Estimated GFR (MDRD) ml/min Glucose (74-106) mg/dL Calcium (8.5-10.1) mg/dL Magnesium (1.8-2.4) mg/dL Total Bilirubin (0.2-1.0) mg/dL AST (15-37) IU/L ALT (14-63) IU/L Alkaline Phosphatase (46-116) U/L Creatine Kinase (26-308) U/L Troponin I (0.000-0.056) ng/mL C-Reactive Protein 0.60 (0.00-0.90) mg/dL Total Protein (6.4-8.2) g/dL Albumin (3.4-5.0) g/dL Globulin (2.6-4.0) g/dL Albumin/Globulin Ratio (0.9-1.6) TSH 3rd Generation (0.36-3.74) uIU/mL Urine Color YELLOW Urine Appearance CLEAR Urine pH 5.5 (5.0-8.0) Ur Specific [place] 1.020 (1.001-1.035) Urine Protein NEGATIVE (NEGATIVE) mg/dL Urine Glucose (UA) NEGATIVE (NEGATIVE) mg/dL Urine Ketones NEGATIVE (NEGATIVE) mg/dL Urine Occult Blood NEGATIVE (NEGATIVE) Urine Nitrite NEGATIVE (NEGATIVE) Urine Bilirubin NEGATIVE (NEGATIVE) Urine Urobilinogen 0.2 (<2.0) EU/dL Ur Leukocyte Esterase NEGATIVE (NEGATIVE) 04/12/19 04/12/19 04/12/19 Range/Units 06:28 06:28 06:28 WBC 16.83 H (4.0-11.0) K/uL RBC 3.96 L (4.30-5.90) M/uL Hgb 11.5 L (12.0-16.0) g/dL Hct 35.1 L (36.0-46.0) % MCV 88.6 (80.0-98.0) fL MCH 29.0 (27.0-32.0) pg MCHC 32.8 (31.0-37.0) g/dL RDW Std Deviation 48.3 (28.0-62.0) fl RDW Coeff of Citlaly 15 (11.0-15.0) % Plt Count 385 (150-400) K/uL MPV 9.70 (7.40-12.00) fL Neut % (Auto) 69.1 (48.0-80.0) % Lymph % (Auto) 24.0 (16.0-40.0) % [place] % (Auto) 6.7 (0.0-15.0) % Eos % (Auto) 0.1 (0.0-7.0) % Baso % (Auto) 0.1 (0.0-1.5) % Neut # (Auto) 11.6 H (1.4-5.7) K/uL Lymph # (Auto) 4.0 H (0.6-2.4) K/uL [place] # (Auto) 1.1 H (0.0-0.8) K/uL Eos # (Auto) 0.0 (0.0-0.7) K/uL Baso # (Auto) 0.0 (0.0-0.1) K/uL Nucleated RBC % 0.0 /100WBC Nucleated RBCs # 0 K/uL ESR (0-29) mm/hr Lactate 2.4 H (0.20-2.00) mmol/L Sodium 141 (136-145) mmol/L Potassium 4.9 (3.5-5.1) mmol/L Chloride 107 (98-107) mmol/L Carbon Dioxide 23.0 (21.0-32.0) mmol/L BUN 21 H (7.0-18.0) mg/dL Creatinine 1.0 (0.6-1.0) mg/dL Est Cr Clr Drug Dosing 46.40 Estimated GFR (MDRD) 55.6 ml/min Glucose 95 (74-106) mg/dL Calcium 9.4 (8.5-10.1) mg/dL Magnesium (1.8-2.4) mg/dL Total Bilirubin (0.2-1.0) mg/dL AST (15-37) IU/L ALT (14-63) IU/L Alkaline Phosphatase (46-116) U/L Creatine Kinase (26-308) U/L Troponin I (0.000-0.056) ng/mL C-Reactive Protein (0.00-0.90) mg/dL Total Protein (6.4-8.2) g/dL Albumin (3.4-5.0) g/dL Globulin (2.6-4.0) g/dL Albumin/Globulin Ratio (0.9-1.6) TSH 3rd Generation (0.36-3.74) uIU/mL Urine Color Urine Appearance Urine pH (5.0-8.0) Ur Specific [place] (1.001-1.035) Urine Protein (NEGATIVE) mg/dL Urine Glucose (UA) (NEGATIVE) mg/dL Urine Ketones (NEGATIVE) mg/dL Urine Occult Blood (NEGATIVE) Urine Nitrite (NEGATIVE) Urine Bilirubin (NEGATIVE) Urine Urobilinogen (<2.0) EU/dL Ur Leukocyte Esterase (NEGATIVE) Result Diagrams: 04/12/19 06:28 04/12/19 06:28 [place] Results Last 24 hrs: Microbiology 04/12/19 00:48 Anaerobic Blood Culture - Final Blood - Venous - Lab Draw EKG INTERPRETATION Rhythm: NSR - Problem List (1) Chest pain SNOMED Code(s): 10024119 ICD Code: R07.9 - CHEST PAIN, UNSPECIFIED Status: Acute Current Visit: Yes (2) Bronchitis SNOMED Code(s): 66634371 ICD Code: J40 - BRONCHITIS, NOT SPECIFIED ACUTE OR CHRONIC Status: Acute Current Visit: Yes (3) Leukocytosis SNOMED Code(s): 529479720, 255571789 ICD Code: D72.829 - ELEVATED WHITE BLOOD CELL COUNT, UNSPECIFIED Status: Acute Current Visit: Yes Qualifiers: Leukocytosis type: unspecified Qualified Code(s): D72.829 - Elevated white blood cell count, unspecified (4) Mediastinal mass Status: Acute Current Visit: Yes (5) GERD (gastroesophageal reflux disease) SNOMED Code(s): 044544682 ICD Code: K21.9 - GASTRO-ESOPHAGEAL REFLUX DISEASE WITHOUT ESOPHAGITIS Status: Acute Current Visit: No Problem List Initiated/Reviewed/Updated: Yes Orders Last 24hrs: Active Orders 24 hr Category Date Time Status Patient Status [ADT] Stat ADT 04/12/19 02:03 Active Pulse Oximetry [RC] ASDIRECTED Care 04/11/19 23:28 Active Regular Diet [DIET] Diet 04/12/19 Breakfast Active CULTURE BLOOD [BC] Stat Lab 04/12/19 00:37 Received CULTURE BLOOD [BC] Stat Lab 04/12/19 00:48 Results LACTIC ACID,WHOLE BLOOD [BG] Routine Lab 04/12/19 12:00 Ordered PERIPH BLOOD SMEAR PATHOLOGIST [HEME] Routine Lab 04/12/19 06:28 Received Acetaminophen [Tylenol] Med 04/12/19 03:11 Active 650 mg PO Q6H PRN Acetaminophen/HYDROcodone [[place] 325-5 MG] Med 04/12/19 09:40 Ordered 1 tab PO Q4H PRN Morphine Med 04/12/19 08:15 Active 2 mg IVPUSH Q3H PRN Sodium Chloride 0.9% [Normal Saline] 1,000 ml Med 04/12/19 03:15 Active IV ASDIRECTED Sodium Chloride 0.9% [Saline Flush] Med 04/11/19 23:30 Active 10 ml FLUSH ASDIRECTED PRN Sodium Chloride 0.9% [Saline Flush] Med 04/11/19 23:30 Active 2.5 ml FLUSH ASDIRECTED PRN cefTRIAXone [Rocephin] 1 gm Med 04/12/19 03:15 Active Sodium Chloride 0.9% [Normal Saline] 50 ml IV Q24H Blood Culture x2 Reflex Set [OM.PC] Stat Oth 04/12/19 00:34 Ordered Saline Lock Insert [OM.PC] Stat Oth 04/11/19 23:28 Ordered Medication Orders Acetaminophen (Tylenol) 650 mg PO Q6H PRN PRN Reason: Pain Last Admin: 04/12/19 03:27 Dose: 650 mg Ceftriaxone Sodium 1 gm/ (Sodium Chloride) 50 mls @ 100 mls/hr IV Q24H [facility] Last Admin: 04/12/19 03:26 Dose: 100 mls/hr Sodium Chloride (Normal Saline) 1,000 mls @ 125 mls/hr IV ASDIRECTED MARCELO Last Admin: 04/12/19 03:27 Dose: 125 mls/hr Morphine Sulfate (Morphine) 2 mg IVPUSH Q3H PRN PRN Reason: Pain Last Admin: 04/12/19 08:39 Dose: 2 mg Sodium Chloride (Saline Flush) 10 ml FLUSH ASDIRECTED PRN PRN Reason: Keep Vein Open Last Admin: 04/11/19 23:39 Dose: 10 ml Sodium Chloride (Saline Flush) 2.5 ml FLUSH ASDIRECTED PRN PRN Reason: Keep Vein Open Last Admin: 04/11/19 23:38 Dose: 2.5 ml Assessment/Plan Comment:: This 63 year old female admitted with bronchitis and medistinal mass 1. Mediastinal mass: new, patient is aware of CT findings. I contact [facility] who recommended I speak with pulmonology regarding possible bronchoscopy. I spoke with Dr Hunt, who will review images and call back, but he may feel it is better suited to consult cardiothoracic surgeon for a mediastinoscopy to obtain biospy of mass. He will call back. I did speak with PCP, Dr Nassar, he is aware of findings and attempts at obtaining outpatient biopsy plan. [place] for chest pain, likely related to mass. Peripheral smear pending. 2. Bronchitis: Hold Doxycyline, continue with Rocephin and breathing treatments PRN. Monitor leukocytosis. 3. elevated lactic acid: 3.4 on arrival treated with fluid resuscitation, improved to 1.9. Will monitor, appears no toxic. 4. Leg pain: Improved this morning with pain medication. More musculoskeletal, pain to posterior. obtain doppler to rule out DVT VTE prophylaxis: Lovenox. Dispo: 1-2 days pending improvement - Mortality Measure Prognosis:: Good
[2019-04-12] MEDS ORDERED: Sodium Chloride 0.9% 500 ML IV SCH ×2 (10:30→11:30)
[2019-04-12] MEDS: Acetaminophen/HYDROcodone 325-5 MG Tab PO PRN ×3 (10:38→23:42)
[2019-04-12] MEDS ORDERED: Albuterol 8 GM Inhaler INH PRN (12:50)
[2019-04-12] MEDS: Enoxaparin 40 MG/0.4 ML Syringe SUBCUT SCH (14:15)
--- NOTE | 2019-04-12 16:11 | US ---
Right lower extremity deep venous ultrasound: Duplex and color flow imaging was obtained of the right common femoral, superficial femoral, popliteal, posterior tibial and anterior tibial veins. Normal phasic flow, augmentation and compression is seen. Impression: No evidence of deep venous thrombosis within the right lower extremity. Diagnostic code #1 MTDD
[2019-04-12] MEDS: Nortriptyline 10 MG Cap PO SCH (20:36)
[2019-04-12] MEDS: Rosuvastatin 10 MG Tab PO SCH (20:36)
[2019-04-13] MEDS: Morphine 2 MG/ML Syringe IVPUSH PRN (02:06)
[2019-04-13] MEDS: cefTRIAXone 1 GM in Sodium Chloride 0.9% 50 ML IV SCH (03:04)
[2019-04-13] MEDS: Sodium Chloride 0.9% 1,000 ML IV SCH ×3 (05:41→22:27)
[2019-04-13 06:52] LABS: BLOOD UREA NITROGEN,BUN 10 mg/dL (7.0-18.0); CARBON DIOXIDE,CO2 24.5 mmol/L (21.0-32.0); CHLORIDE,CL 105 mmol/L (98-107); GLUCOSE RANDOM 83 mg/dL (74-106); POTASSIUM,K 3.9 mmol/L (3.5-5.1); SODIUM,NA 139 mmol/L (136-145)
[2019-04-13] MEDS: Losartan 50 MG Tab PO SCH (08:36)
[2019-04-13] MEDS: Famotidine 20 MG Tab PO SCH (08:36)
[2019-04-13] MEDS: Acetaminophen/HYDROcodone 325-5 MG Tab PO PRN ×2 (11:02→22:28)
[2019-04-13] MEDS: Enoxaparin 40 MG/0.4 ML Syringe SUBCUT SCH (14:24)
--- NOTE | 2019-04-13 18:59 | PCM.PN ---
- General Info Date of Service: 04/13/19 - Review of Systems Systems Review Comment:: patient report pain in leg and chest, with cough - Patient Data Vitals - Most Recent: Last Vital Signs Temp 37.0 C 04/13/19 15:00 Pulse 75 04/13/19 15:00 Resp 18 04/13/19 15:00 BP 171/74 H 04/13/19 15:00 Pulse Ox 96 04/13/19 15:00 Weight - Most Recent: 54.749 kg I&O - Last 24 Hours: Intake & Output 04/13/19 04/13/19 04/13/19 06:59 14:59 22:59 Intake Total 2253 3310 Output Total 1950 1500 Balance 303 1810 Lab Results Last 24 Hours: Laboratory Results - last 24 hr 04/12/19 04/13/19 04/13/19 Range/Units 06:28 05:45 05:45 WBC 15.09 H (4.0-11.0) K/uL RBC 4.07 L (4.30-5.90) M/uL Hgb 11.8 L (12.0-16.0) g/dL Hct 36.2 (36.0-46.0) % MCV 88.9 (80.0-98.0) fL MCH 29.0 (27.0-32.0) pg MCHC 32.6 (31.0-37.0) g/dL RDW Std Deviation 49.1 (28.0-62.0) fl RDW Coeff of Citlaly 15 (11.0-15.0) % Plt Count 321 (150-400) K/uL MPV 10.30 (7.40-12.00) fL Neut % (Auto) 56.2 (48.0-80.0) % Lymph % (Auto) 30.7 (16.0-40.0) % [place] % (Auto) 9.4 (0.0-15.0) % Eos % (Auto) 3.4 (0.0-7.0) % Baso % (Auto) 0.3 (0.0-1.5) % Neut # (Auto) 8.5 H (1.4-5.7) K/uL Lymph # (Auto) 4.6 H (0.6-2.4) K/uL Adams # (Auto) 1.4 H (0.0-0.8) K/uL Eos # (Auto) 0.5 (0.0-0.7) K/uL Baso # (Auto) 0.1 (0.0-0.1) K/uL Nucleated RBC % 0.0 /100WBC Nucleated RBCs # 0 K/uL Smear Path Review SENT TO PATHOLOGY Sodium 139 (136-145) mmol/L Potassium 3.9 (3.5-5.1) mmol/L Chloride 105 (98-107) mmol/L Carbon Dioxide 24.5 (21.0-32.0) mmol/L BUN 10 (7.0-18.0) mg/dL Creatinine 0.7 (0.6-1.0) mg/dL Est Cr Clr Drug Dosing 66.28 mL/min Estimated GFR (MDRD) > 60.0 ml/min Glucose 83 (74-106) mg/dL Calcium 8.9 (8.5-10.1) mg/dL Med Orders - Current: Current Medications Acetaminophen (Tylenol) 650 mg PO Q6H PRN PRN Reason: Pain Last Admin: 04/12/19 03:27 Dose: 650 mg Hydrocodone Bitart/Acetaminophen ([place] 325-5 Mg) 1 tab PO Q4H PRN PRN Reason: Pain Last Admin: 04/13/19 11:02 Dose: 1 tab Albuterol (Ventolin Hfa) 0 gm INH Q4H PRN PRN Reason: SOB/wheezing Enoxaparin Sodium (Lovenox) 40 mg SUBCUT Q24H [facility] Last Admin: 04/13/19 14:24 Dose: 40 mg Famotidine (Pepcid) 20 mg PO DAILY [facility] Last Admin: 04/13/19 08:36 Dose: 20 mg Ceftriaxone Sodium 1 gm/ (Sodium Chloride) 50 mls @ 100 mls/hr IV Q24H [facility] Last Admin: 04/13/19 03:04 Dose: 100 mls/hr Sodium Chloride (Normal Saline) 1,000 mls @ 125 mls/hr IV ASDIRECTED [facility] Last Admin: 04/13/19 14:24 Dose: 125 mls/hr Losartan Potassium (Cozaar) 50 mg PO QAM [facility] Last Admin: 04/13/19 08:36 Dose: 50 mg Morphine Sulfate (Morphine) 2 mg IVPUSH Q3H PRN PRN Reason: Pain Last Admin: 04/13/19 02:06 Dose: 2 mg Nortriptyline HCl (Nortriptyline) 10 mg PO BEDTIME [facility] Last Admin: 04/12/19 20:36 Dose: 10 mg Rosuvastatin Calcium (Crestor) 10 mg PO BEDTIME [facility] Last Admin: 04/12/19 20:36 Dose: 10 mg Sodium Chloride (Saline Flush) 10 ml FLUSH ASDIRECTED PRN PRN Reason: Keep Vein Open Last Admin: 04/11/19 23:39 Dose: 10 ml Sodium Chloride (Saline Flush) 2.5 ml FLUSH ASDIRECTED PRN PRN Reason: Keep Vein Open Last Admin: 04/11/19 23:38 Dose: 2.5 ml Discontinued Medications Sodium Chloride (Normal Saline) 1,000 mls @ 999 mls/hr IV STAT ONE Stop: 04/12/19 00:30 Last Admin: 04/11/19 23:38 Dose: 999 mls/hr Sodium Chloride (Normal Saline) 500 mls @ 999 mls/hr IV .BOLUS [facility] Sodium Chloride (Normal Saline) 500 mls @ 999 mls/hr IV BOLUS [facility] Stop: 04/12/19 12:01 Last Admin: 04/12/19 11:44 Dose: 999 mls/hr Iopamidol (Isovue Multipack-370 (76%)) 50 ml IVPUSH ONETIME ONE Stop: 04/12/19 00:52 Last Admin: 04/12/19 00:51 Dose: 50 ml Ketorolac Tromethamine (Toradol) 30 mg IVPUSH ONETIME ONE Stop: 04/11/19 23:31 Last Admin: 04/11/19 23:40 Dose: 30 mg Lorazepam (Ativan) 0.5 mg IVPUSH ONETIME ONE Stop: 04/11/19 23:31 Last Admin: 04/11/19 23:39 Dose: 0.5 mg - Exam General: Alert, Oriented Lungs: Clear to Auscultation, Normal Respiratory Effort Cardiovascular: Regular Rate, Regular Rhythm GI/Abdominal Exam: Normal Bowel Sounds, Soft, Non-Tender Extremities: Non-Tender, No Pedal Edema Skin: Warm, Dry, Intact Neurological: No New Focal Deficit - Problem List Review Problem List Initiated/Reviewed/Updated: Yes - Plan Plan:: This 63 year old female admitted with bronchitis and medistinal mass 1. Mediastinal mass: Awaiting a call back from Dr Hunt, who will review images , but he may feel it is better suited to consult cardiothoracic surgeon for a mediastinoscopy to obtain biospy of mass. [place] for chest pain, likely related to mass. Peripheral smear pending. 2. Bronchitis continue with Rocephin and breathing treatments PRN. Monitor leukocytosis. 4. Leg pain: Improved norco. More musculoskeletal, pain to posterior. obtain doppler to rule out DVT VTE prophylaxis: Lovenox. Dispo: 1-2 days pending improvement
[2019-04-13] MEDS: Rosuvastatin 10 MG Tab PO SCH (20:21)
[2019-04-13] MEDS: Nortriptyline 10 MG Cap PO SCH (20:21)
[2019-04-14] MEDS: cefTRIAXone 1 GM in Sodium Chloride 0.9% 50 ML IV SCH (02:46)
[2019-04-14] MEDS: Sodium Chloride 0.9% 1,000 ML IV SCH ×3 (07:15→23:36)
[2019-04-14] MEDS: Acetaminophen/HYDROcodone 325-5 MG Tab PO PRN ×3 (08:47→21:15)
[2019-04-14] MEDS: Famotidine 20 MG Tab PO SCH (08:47)
[2019-04-14] MEDS: Losartan 50 MG Tab PO SCH (08:47)
--- NOTE | 2019-04-14 09:43 | PCM.PN ---
- General Info Date of Service: 04/14/19 Admission Dx/Problem (Free Text): Admission Diagnosis/Problem Admission Diagnosis/Problem Leukocytosis, chest pain, cough, anterior mediastinal mass Subjective Update: The patient is a 63-year-old lady who had presented to the emergency department for admission on April 12, 2019 secondary to chest pain, cough, leukocytosis and increased sputum production. The patient had been noted to have a 7 x 6 cm anterior mediastinal mass. The patient says that she is not doing better today. She is having considerable pain ambulating. The pain is located predominantly in the right hip. She is also having pain in her right knee as well. The patient has been tolerating her diet and her pain has been controlled. Functional Status: Reports: Pain Controlled - Review of Systems General: Reports: No Symptoms HEENT: Reports: No Symptoms Pulmonary: Reports: Shortness of Breath, Cough Cardiovascular: Reports: No Symptoms Gastrointestinal: Reports: No Symptoms Genitourinary: Reports: No Symptoms Musculoskeletal: Reports: Leg Pain, Joint Pain Skin: Reports: No Symptoms Neurological: Reports: No Symptoms Psychiatric: Reports: No Symptoms - Patient Data Vitals - Most Recent: Last Vital Signs Temp 36.5 C 04/14/19 07:15 Pulse 74 04/14/19 07:15 Resp 16 04/14/19 07:15 BP 146/66 H 04/14/19 08:47 Pulse Ox 95 04/14/19 07:15 Weight - Most Recent: 54.749 kg I&O - Last 24 Hours: Intake & Output 04/13/19 04/14/19 04/14/19 22:59 06:59 14:59 Intake Total 3310 1769 Output Total 1500 1000 Balance 1810 769 Med Orders - Current: Current Medications Acetaminophen (Tylenol) 650 mg PO Q6H PRN PRN Reason: Pain Last Admin: 04/12/19 03:27 Dose: 650 mg Hydrocodone Bitart/Acetaminophen ([place] 325-5 Mg) 1 tab PO Q4H PRN PRN Reason: Pain Last Admin: 04/14/19 08:47 Dose: 1 tab Albuterol (Ventolin Hfa) 0 gm INH Q4H PRN PRN Reason: SOB/wheezing Enoxaparin Sodium (Lovenox) 40 mg SUBCUT Q24H [facility] Last Admin: 04/13/19 14:24 Dose: 40 mg Famotidine (Pepcid) 20 mg PO DAILY [facility] Last Admin: 04/14/19 08:47 Dose: 20 mg Ceftriaxone Sodium 1 gm/ (Sodium Chloride) 50 mls @ 100 mls/hr IV Q24H [facility] Last Admin: 04/14/19 02:46 Dose: 100 mls/hr Sodium Chloride (Normal Saline) 1,000 mls @ 125 mls/hr IV ASDIRECTED [facility] Last Admin: 04/14/19 07:15 Dose: 125 mls/hr Losartan Potassium (Cozaar) 50 mg PO QAM [facility] Last Admin: 04/14/19 08:47 Dose: 50 mg Morphine Sulfate (Morphine) 2 mg IVPUSH Q3H PRN PRN Reason: Pain Last Admin: 04/13/19 02:06 Dose: 2 mg Nortriptyline HCl (Nortriptyline) 10 mg PO BEDTIME [facility] Last Admin: 04/13/19 20:21 Dose: 10 mg Rosuvastatin Calcium (Crestor) 10 mg PO BEDTIME [facility] Last Admin: 04/13/19 20:21 Dose: 10 mg Sodium Chloride (Saline Flush) 10 ml FLUSH ASDIRECTED PRN PRN Reason: Keep Vein Open Last Admin: 04/11/19 23:39 Dose: 10 ml Sodium Chloride (Saline Flush) 2.5 ml FLUSH ASDIRECTED PRN PRN Reason: Keep Vein Open Last Admin: 04/11/19 23:38 Dose: 2.5 ml Discontinued Medications Sodium Chloride (Normal Saline) 1,000 mls @ 999 mls/hr IV STAT ONE Stop: 04/12/19 00:30 Last Admin: 04/11/19 23:38 Dose: 999 mls/hr Sodium Chloride (Normal Saline) 500 mls @ 999 mls/hr IV .BOLUS [facility] Sodium Chloride (Normal Saline) 500 mls @ 999 mls/hr IV BOLUS [facility] Stop: 04/12/19 12:01 Last Admin: 04/12/19 11:44 Dose: 999 mls/hr Iopamidol (Isovue Multipack-370 (76%)) 50 ml IVPUSH ONETIME ONE Stop: 04/12/19 00:52 Last Admin: 04/12/19 00:51 Dose: 50 ml Ketorolac Tromethamine (Toradol) 30 mg IVPUSH ONETIME ONE Stop: 04/11/19 23:31 Last Admin: 04/11/19 23:40 Dose: 30 mg Lorazepam (Ativan) 0.5 mg IVPUSH ONETIME ONE Stop: 04/11/19 23:31 Last Admin: 04/11/19 23:39 Dose: 0.5 mg - Exam Quality Assessment: No: Supplemental Oxygen General: Alert, Oriented, Cooperative, No Acute Distress HEENT: Pupils Equal, Pupils Reactive, EOMI. No: Mucous Membr. Moist/[place] (Dry) Neck: Supple, Trachea Midline Lungs: Normal Respiratory Effort, [place] Cardiovascular: Regular Rate, Regular Rhythm GI/Abdominal Exam: Normal Bowel Sounds, Soft, No Distention Extremities: Normal Range of Motion (Increased pain with hip flexion). No: Normal Inspection (Tender over area of right hip) Skin: Warm, Dry, Intact Neurological: No New Focal Deficit Psy/Mental Status: Alert, Normal Affect, Normal Mood - Problem List & Annotations (1) Chest pain SNOMED Code(s): 33534272 Code(s): R07.9 - CHEST PAIN, UNSPECIFIED Status: Acute Current Visit: Yes Qualifiers: Chest pain type: pleurodynia Qualified Code(s): R07.81 - Pleurodynia (2) Leukocytosis SNOMED Code(s): 543339828, 669071065 Code(s): D72.829 - ELEVATED WHITE BLOOD CELL COUNT, UNSPECIFIED Status: Acute Priority: High Current Visit: Yes Qualifiers: Leukocytosis type: bandemia Qualified Code(s): D72.825 - Bandemia (3) Bronchitis SNOMED Code(s): 76996490 Code(s): J40 - BRONCHITIS, NOT SPECIFIED ACUTE OR CHRONIC Status: Acute Priority: High Current Visit: Yes (4) Mediastinal mass Status: Chronic Priority: Medium Current Visit: Yes - Problem List Review Problem List Initiated/Reviewed/Updated: Yes - Plan Plan:: The patient is a 63-year-old lady who is having difficulty ambulating. She is having significant pain in her right hip and right knee. I've ordered physical therapy to assist with her ambulation. She is not appropriate for discharge home at this time. The patient does have leukocytosis which is somewhat concerning for the possibility of malignancy. I also discussed with the patient that this mass would need to be biopsied. It's located in the anterior mediastinum and she'll likely need to have consultation with CVT surgeon in order to have a mass biopsy by mediastinal endoscopy. The patient has been encouraged to ambulate. For now she'll be continued on Rocephin. She is to have diet as tolerated. DVT prophylaxis will also be continued with the use of Lovenox. She'll likely be appropriate for discharge home with antibiotics possibly tomorrow.
[2019-04-14] MEDS: Enoxaparin 40 MG/0.4 ML Syringe SUBCUT SCH (13:46)
[2019-04-14] MEDS: Rosuvastatin 10 MG Tab PO SCH (21:15)
[2019-04-14] MEDS: Nortriptyline 10 MG Cap PO SCH (21:15)
[2019-04-15] MEDS: cefTRIAXone 1 GM in Sodium Chloride 0.9% 50 ML IV SCH (03:15)
[2019-04-15] MEDS: Acetaminophen/HYDROcodone 325-5 MG Tab PO PRN ×2 (04:33→13:02)
[2019-04-15 06:44] LABS: BLOOD UREA NITROGEN,BUN 10 mg/dL (7.0-18.0); CHLORIDE,CL 105 mmol/L (98-107); GLUCOSE RANDOM 91 mg/dL (74-106); POTASSIUM,K 3.6 mmol/L (3.5-5.1); SODIUM,NA 139 mmol/L (136-145)
[2019-04-15] MEDS: Famotidine 20 MG Tab PO SCH (09:14)
[2019-04-15] MEDS: Losartan 50 MG Tab PO SCH (09:14)
[2019-04-15] MEDS ORDERED: Cyclobenzaprine 5 MG Tab PO PRN (10:27)
--- NOTE | 2019-04-15 10:28 | PCM.DCSUM1 ---
<Bessy Beasley - Last Filed: 04/15/19 15:37> Discharge Summary - Hospital Course Brief History: This 63 year old female with pmh of tobacco use for 40+ years, HTN, dyslipidemia and GERD presented to the ED with chest pain. She was seen by PCP 3 days ago with wheezing and increased sputum production, she was started on inhaler, Doxycycline and Dexamethasone for bronchitis. CXR then was negative for infiltrate. She reports this pain is across her chest and is a heaviness and "bubbly" feeling inside at times. She denies fevers at home. Reports increase green sputum at times. She has had extensive testing for GERD with EGD and biopsies. She was noted to have gastritis and take Famotidine for this. She also reported leg pain that is in the posterior thigh and hurts worse when she is going from a sitting to standing position. She denies back pain sore from where she saw the chiropractor. No numbness or tingling to leg. No loss of sensation. Is able to bend leg without significant increase in pain. In the ED leukocytosis noted at 16,610, hgb 13.1, platelets 462, lactate elevated at 3.4. BUN 21, Cr 1.1 AST 44, Alk phos 126. UA negative. CXR obtained which revealed mild fullness in mediastinal region, CT chest with contrast recommended, this was obtained and revealed a 7.0 x 5.5 cm anterior mediastinal mass. She was treated with IVFs, and pain medication. Admitted observation for chest pain and new mediastinal mass. PCP, Dr Nassar. Diagnosis: Stroke: No - Discharge Data Discharge Date: 04/15/19 Discharge Disposition: Home, Self-Care 01 Condition: Stable - Referral to Home Health Primary Care Physician: Wilner Nassar MD - Discharge Diagnosis/Problem(s) (1) Chest pain SNOMED Code(s): 41520154 ICD Code: R07.9 - CHEST PAIN, UNSPECIFIED Status: Acute Qualifiers: Chest pain type: pleurodynia Qualified Code(s): R07.81 - Pleurodynia (2) Bronchitis SNOMED Code(s): 90954192 ICD Code: J40 - BRONCHITIS, NOT SPECIFIED ACUTE OR CHRONIC Status: Acute Priority: High (3) Leukocytosis SNOMED Code(s): 906613629, 737000346 ICD Code: D72.829 - ELEVATED WHITE BLOOD CELL COUNT, UNSPECIFIED Status: Acute Priority: High Qualifiers: Leukocytosis type: bandemia Qualified Code(s): D72.825 - Bandemia (4) Mediastinal mass Status: Chronic Priority: Medium (5) GERD (gastroesophageal reflux disease) SNOMED Code(s): 560301367 ICD Code: K21.9 - GASTRO-ESOPHAGEAL REFLUX DISEASE WITHOUT ESOPHAGITIS Status: Acute - Patient Summary/Data Consults: Consultations 04/14/19 09:45 Consult to Occupational Therapy [OT Evaluation and Treatment] [CONS] Routine PT Evaluation and Treatment [CONS] Routine - Discharge Plan Prescriptions/Med Rec: Acetaminophen/HYDROcodone [[place] 325-5 MG] 1 tab PO Q6H PRN #20 tablet PRN Reason: Pain Cefdinir 300 mg PO BID #6 capsule Cyclobenzaprine [Flexeril] 5 mg PO TID PRN #20 tablet PRN Reason: muscle spasms Home Medications: Home Meds Losartan Potassium 50 mg PO QAM 05/29/18 [History] Rosuvastatin Calcium 10 mg PO BEDTIME 05/29/18 [History] Famotidine 20 mg PO DAILY 04/11/19 [History] Nortriptyline 10 mg PO BEDTIME 04/11/19 [History] Albuterol Sulfate [Albuterol Sulfate Hfa] 2 puff Q8HR 04/12/19 [History] Acetaminophen/HYDROcodone [[place] 325-5 MG] 1 tab PO Q6H PRN #20 tablet 04/15/19 [Rx] Cefdinir 300 mg PO BID #6 capsule 04/15/19 [Rx] Cyclobenzaprine [Flexeril] 5 mg PO TID PRN #20 tablet 04/15/19 [Rx] Patient Handouts: Acetaminophen; Hydrocodone tablets or capsules, Cyclobenzaprine tablets, Cefdinir capsules, Leukocytosis Referrals: [facility] [Outside] Luis Alberto Rodarte MD, PhD [Consulting Physician] - (Nurse will call you for appointment.) Wilner Nassar MD [Primary Care Provider] - 04/19/19 9:00 am - Discharge Summary/Plan Comment DC Time >30 min.: No Discharge Summary/Plan Comment: Admitting Diagnoses: Chest pain Mediastinal mass Possible CAP R leg pain L4-5 degenerative disc disease Discharge Diagnoses: Mediastinal mass R leg pain L4-5 degenerative disc disease Other PMH Smoker Kat was admitted secondary to chest pain. CT angio revealed anterior mediastinal mass 7.0 x 5.5 cm. She was treated for possible secondary pneumonia as well, leukocytosis improved somewhat, but may be more reactive to ppossible malignancy. Peripheral smear obtained, I spoke with Dr Garcia, who did not see any blasts, please see final report. I spoke with patient regarding the need for biopsy of this mass, she requested going to [facility] for further workup. I spoke with Dr Rodarte, cardiothoracic surgeon who recommended PET scan then he would see her in the clinic to arrange further workup. Pain is well controlled with [place], cough is improving as well. Leukocytosis is 13,000 today. No fevers, she is stable on RA. Leg pain persistent but is improving, likely related to l4-5 degenerative disk disease. She was evaluated by PT and felt a walker may help her ambulate. I will order a walker for her at this time to help with ambulating secondary to R leg pain from degenerative disc disease. I will continue with [place] 5/325 mg 1 tab verónica 6 hours as needed for pain as well as PRN Flexeril for muscle spasms. Patient is allergic to NSAIDs, so unable to give these currently. She is to follow up with PCP and follow up with PET scan in [place] as well as with Dr Rodarte for further work up of medistinal mass. - Patient Data Vitals - Most Recent: Last Vital Signs Temp 97.2 F 04/15/19 07:30 Pulse 80 04/15/19 07:30 Resp 16 04/15/19 07:30 BP 152/67 H 04/15/19 09:14 Pulse Ox 94 L 04/15/19 07:30 Weight - Most Recent: 54.749 kg I&O - Last 24 hours: Intake & Output 04/14/19 04/15/19 04/15/19 22:59 06:59 14:59 Intake Total 2039 2013 Output Total 1949 600 Balance 90 1414 Lab Results - Last 24 hrs: Laboratory Results - last 24 hr 04/15/19 04/15/19 Range/Units 05:50 05:50 WBC 13.43 H (4.0-11.0) K/uL RBC 3.70 L (4.30-5.90) M/uL Hgb 10.6 L (12.0-16.0) g/dL Hct 32.6 L (36.0-46.0) % MCV 88.1 (80.0-98.0) fL MCH 28.6 (27.0-32.0) pg MCHC 32.5 (31.0-37.0) g/dL RDW Std Deviation 47.6 (28.0-62.0) fl RDW Coeff of Citlaly 15 (11.0-15.0) % Plt Count 299 (150-400) K/uL MPV 10.00 (7.40-12.00) fL Neut % (Auto) 52.9 (48.0-80.0) % Lymph % (Auto) 23.5 (16.0-40.0) % [place] % (Auto) 9.0 (0.0-15.0) % Eos % (Auto) 14.2 H (0.0-7.0) % Baso % (Auto) 0.4 (0.0-1.5) % Neut # (Auto) 7.1 H (1.4-5.7) K/uL Lymph # (Auto) 3.2 H (0.6-2.4) K/uL [place] # (Auto) 1.2 H (0.0-0.8) K/uL Eos # (Auto) 1.9 H (0.0-0.7) K/uL Baso # (Auto) 0.1 (0.0-0.1) K/uL Nucleated RBC % 0.0 /100WBC Nucleated RBCs # 0 K/uL Sodium 139 (136-145) mmol/L Potassium 3.6 (3.5-5.1) mmol/L Chloride 105 (98-107) mmol/L Carbon Dioxide 23.0 (21.0-32.0) mmol/L BUN 10 (7.0-18.0) mg/dL Creatinine 0.6 (0.6-1.0) mg/dL Est Cr Clr Drug Dosing 77.33 mL/min Estimated GFR (MDRD) > 60.0 ml/min Glucose 91 (74-106) mg/dL Calcium 8.8 (8.5-10.1) mg/dL Med Orders - Current: Current Medications Acetaminophen (Tylenol) 650 mg PO Q6H PRN PRN Reason: Pain Last Admin: 04/12/19 03:27 Dose: 650 mg Hydrocodone Bitart/Acetaminophen ([place] 325-5 Mg) 1 tab PO Q4H PRN PRN Reason: Pain Last Admin: 04/15/19 04:33 Dose: 1 tab Albuterol (Ventolin Hfa) 0 gm INH Q4H PRN PRN Reason: SOB/wheezing Cyclobenzaprine HCl (Flexeril) 5 mg PO TID PRN PRN Reason: muscle spasms Enoxaparin Sodium (Lovenox) 40 mg SUBCUT Q24H [facility] Last Admin: 04/14/19 13:46 Dose: 40 mg Famotidine (Pepcid) 20 mg PO DAILY [facility] Last Admin: 04/15/19 09:14 Dose: 20 mg Ceftriaxone Sodium 1 gm/ (Sodium Chloride) 50 mls @ 100 mls/hr IV Q24H [facility] Last Admin: 04/15/19 03:15 Dose: 100 mls/hr Sodium Chloride (Normal Saline) 1,000 mls @ 125 mls/hr IV ASDIRECTED [facility] Last Admin: 04/14/19 23:36 Dose: 125 mls/hr Losartan Potassium (Cozaar) 50 mg PO QAM [facility] Last Admin: 04/15/19 09:14 Dose: 50 mg Morphine Sulfate (Morphine) 2 mg IVPUSH Q3H PRN PRN Reason: Pain Last Admin: 04/13/19 02:06 Dose: 2 mg Nortriptyline HCl (Nortriptyline) 10 mg PO BEDTIME [facility] Last Admin: 04/14/19 21:15 Dose: 10 mg Rosuvastatin Calcium (Crestor) 10 mg PO BEDTIME [facility] Last Admin: 04/14/19 21:15 Dose: 10 mg Sodium Chloride (Saline Flush) 10 ml FLUSH ASDIRECTED PRN PRN Reason: Keep Vein Open Last Admin: 04/11/19 23:39 Dose: 10 ml Sodium Chloride (Saline Flush) 2.5 ml FLUSH ASDIRECTED PRN PRN Reason: Keep Vein Open Last Admin: 04/11/19 23:38 Dose: 2.5 ml Discontinued Medications Sodium Chloride (Normal Saline) 1,000 mls @ 999 mls/hr IV STAT ONE Stop: 04/12/19 00:30 Last Admin: 04/11/19 23:38 Dose: 999 mls/hr Sodium Chloride (Normal Saline) 500 mls @ 999 mls/hr IV .BOLUS [facility] Sodium Chloride (Normal Saline) 500 mls @ 999 mls/hr IV BOLUS [facility] Stop: 04/12/19 12:01 Last Admin: 04/12/19 11:44 Dose: 999 mls/hr Iopamidol (Isovue Multipack-370 (76%)) 50 ml IVPUSH ONETIME ONE Stop: 04/12/19 00:52 Last Admin: 04/12/19 00:51 Dose: 50 ml Ketorolac Tromethamine (Toradol) 30 mg IVPUSH ONETIME ONE Stop: 04/11/19 23:31 Last Admin: 04/11/19 23:40 Dose: 30 mg Lorazepam (Ativan) 0.5 mg IVPUSH ONETIME ONE Stop: 04/11/19 23:31 Last Admin: 04/11/19 23:39 Dose: 0.5 mg <Lamonte Ramirez - Last Filed: 04/15/19 18:16> Discharge Summary - Hospital Course HPI Initial Comments: I have seen and examined the patient independently of Analy Beasley CNP. I have discussed the case with her. I have reviewed and agree with the assessment and plan as outlined very her for this patient. Please see orders. - Referral to Home Health Primary Care Physician: Wilner Nassar MD - Discharge Diagnosis/Problem(s) (1) Chest pain SNOMED Code(s): 58584096 ICD Code: R07.9 - CHEST PAIN, UNSPECIFIED Status: Acute Qualifiers: Chest pain type: pleurodynia Qualified Code(s): R07.81 - Pleurodynia (2) Leukocytosis SNOMED Code(s): 495535763, 758805418 ICD Code: D72.829 - ELEVATED WHITE BLOOD CELL COUNT, UNSPECIFIED Status: Acute Priority: High Qualifiers: Leukocytosis type: bandemia Qualified Code(s): D72.825 - Bandemia (3) Bronchitis SNOMED Code(s): 80200112 ICD Code: J40 - BRONCHITIS, NOT SPECIFIED ACUTE OR CHRONIC Status: Acute Priority: High (4) Mediastinal mass Status: Chronic Priority: Medium - Patient Summary/Data Consults: Consultations 04/14/19 09:45 Consult to Occupational Therapy [OT Evaluation and Treatment] [CONS] Routine PT Evaluation and Treatment [CONS] Routine - Patient Data Vitals - Most Recent: Last Vital Signs Temp 37.1 C 04/15/19 12:45 Pulse 75 04/15/19 12:45 Resp 16 04/15/19 12:45 BP 150/67 H 04/15/19 12:45 Pulse Ox 95 04/15/19 12:45 I&O - Last 24 hours: Intake & Output 04/15/19 04/15/19 04/15/19 06:59 14:59 22:59 Intake Total 2013 920 Output Total 600 1500 Balance 1414 -580 Lab Results - Last 24 hrs: Laboratory Results - last 24 hr 04/15/19 04/15/19 Range/Units 05:50 05:50 WBC 13.43 H (4.0-11.0) K/uL RBC 3.70 L (4.30-5.90) M/uL Hgb 10.6 L (12.0-16.0) g/dL Hct 32.6 L (36.0-46.0) % MCV 88.1 (80.0-98.0) fL MCH 28.6 (27.0-32.0) pg MCHC 32.5 (31.0-37.0) g/dL RDW Std Deviation 47.6 (28.0-62.0) fl RDW Coeff of Citlaly 15 (11.0-15.0) % Plt Count 299 (150-400) K/uL MPV 10.00 (7.40-12.00) fL Neut % (Auto) 52.9 (48.0-80.0) % Lymph % (Auto) 23.5 (16.0-40.0) % [place] % (Auto) 9.0 (0.0-15.0) % Eos % (Auto) 14.2 H (0.0-7.0) % Baso % (Auto) 0.4 (0.0-1.5) % Neut # (Auto) 7.1 H (1.4-5.7) K/uL Lymph # (Auto) 3.2 H (0.6-2.4) K/uL [place] # (Auto) 1.2 H (0.0-0.8) K/uL Eos # (Auto) 1.9 H (0.0-0.7) K/uL Baso # (Auto) 0.1 (0.0-0.1) K/uL Nucleated RBC % 0.0 /100WBC Nucleated RBCs # 0 K/uL Sodium 139 (136-145) mmol/L Potassium 3.6 (3.5-5.1) mmol/L Chloride 105 (98-107) mmol/L Carbon Dioxide 23.0 (21.0-32.0) mmol/L BUN 10 (7.0-18.0) mg/dL Creatinine 0.6 (0.6-1.0) mg/dL Est Cr Clr Drug Dosing 77.33 mL/min Estimated GFR (MDRD) > 60.0 ml/min Glucose 91 (74-106) mg/dL Calcium 8.8 (8.5-10.1) mg/dL FABIO Results - Last 24 hrs: Microbiology 04/12/19 00:48 Aerobic Blood Culture - Preliminary Blood - Venous - Lab Draw NO GROWTH AFTER 3 DAYS Anaerobic Blood Culture - Final 04/12/19 00:37 Aerobic Blood Culture - Preliminary Blood - Venous NO GROWTH AFTER 3 DAYS Anaerobic Blood Culture - Preliminary NO GROWTH AFTER 3 DAYS Med Orders - Current: Current Medications Discontinued Medications Acetaminophen (Tylenol) 650 mg PO Q6H PRN PRN Reason: Pain Last Admin: 04/12/19 03:27 Dose: 650 mg Hydrocodone Bitart/Acetaminophen ([place] 325-5 Mg) 1 tab PO Q4H PRN PRN Reason: Pain Last Admin: 04/15/19 13:02 Dose: 1 tab Albuterol (Ventolin Hfa) 0 gm INH Q4H PRN PRN Reason: SOB/wheezing Cyclobenzaprine HCl (Flexeril) 5 mg PO TID PRN PRN Reason: muscle spasms Enoxaparin Sodium (Lovenox) 40 mg SUBCUT Q24H [facility] Last Admin: 04/15/19 13:03 Dose: 40 mg Famotidine (Pepcid) 20 mg PO DAILY [facility] Last Admin: 04/15/19 09:14 Dose: 20 mg Sodium Chloride (Normal Saline) 1,000 mls @ 999 mls/hr IV STAT ONE Stop: 04/12/19 00:30 Last Admin: 04/11/19 23:38 Dose: 999 mls/hr Ceftriaxone Sodium 1 gm/ (Sodium Chloride) 50 mls @ 100 mls/hr IV Q24H [facility] Last Admin: 04/15/19 03:15 Dose: 100 mls/hr Sodium Chloride (Normal Saline) 1,000 mls @ 125 mls/hr IV ASDIRECTED [facility] Last Admin: 04/14/19 23:36 Dose: 125 mls/hr Sodium Chloride (Normal Saline) 500 mls @ 999 mls/hr IV .BOLUS [facility] Sodium Chloride (Normal Saline) 500 mls @ 999 mls/hr IV BOLUS [facility] Stop: 04/12/19 12:01 Last Admin: 04/12/19 11:44 Dose: 999 mls/hr Iopamidol (Isovue Multipack-370 (76%)) 50 ml IVPUSH ONETIME ONE Stop: 04/12/19 00:52 Last Admin: 04/12/19 00:51 Dose: 50 ml Ketorolac Tromethamine (Toradol) 30 mg IVPUSH ONETIME ONE Stop: 04/11/19 23:31 Last Admin: 04/11/19 23:40 Dose: 30 mg Lorazepam (Ativan) 0.5 mg IVPUSH ONETIME ONE Stop: 04/11/19 23:31 Last Admin: 04/11/19 23:39 Dose: 0.5 mg Losartan Potassium (Cozaar) 50 mg PO QAM [facility] Last Admin: 04/15/19 09:14 Dose: 50 mg Morphine Sulfate (Morphine) 2 mg IVPUSH Q3H PRN PRN Reason: Pain Last Admin: 04/13/19 02:06 Dose: 2 mg Nortriptyline HCl (Nortriptyline) 10 mg PO BEDTIME [facility] Last Admin: 04/14/19 21:15 Dose: 10 mg Rosuvastatin Calcium (Crestor) 10 mg PO BEDTIME [facility] Last Admin: 04/14/19 21:15 Dose: 10 mg Sodium Chloride (Saline Flush) 10 ml FLUSH ASDIRECTED PRN PRN Reason: Keep Vein Open Last Admin: 04/11/19 23:39 Dose: 10 ml Sodium Chloride (Saline Flush) 2.5 ml FLUSH ASDIRECTED PRN PRN Reason: Keep Vein Open Last Admin: 04/11/19 23:38 Dose: 2.5 ml
[2019-04-15] MEDS: Enoxaparin 40 MG/0.4 ML Syringe SUBCUT SCH (13:03)
== END 2019-04-15 16:10 | disposition home or self-care (01) | DRG 179 ==
LOC: MW.ED 23:15 → MW.MS 04-12 02:03 → OBSVTOIN 04-14 18:27
PROVIDERS: ADMIT Internal Medicine; ATTEND Internal Medicine
DX: J98.59 Other diseases of mediastinum, not elsewhere classified (principal); R07.9 Chest pain, unspecified; J40 Bronchitis, not specified as acute or chronic; R22.2 Localized swelling, mass and lump, trunk; D72.829 Elevated white blood cell count, unspecified; M79.651 Pain in right thigh; I10 Essential (primary) hypertension; E78.5 Hyperlipidemia, unspecified; K21.9 Gastro-esophageal reflux disease without esophagitis; D72.825 Bandemia; F17.210 Nicotine dependence, cigarettes, uncomplicated; M51.36 Other intervertebral disc degeneration, lumbar region; E78.00 Pure hypercholesterolemia, unspecified; G89.29 Other chronic pain; M54.9 Dorsalgia, unspecified; M25.561 Pain in right knee; M25.551 Pain in right hip; E11.9 Type 2 diabetes mellitus without complications; Z88.6 Allergy status to analgesic agent; Z79.899 Other long term (current) drug therapy
CPT/HCPCS: 36415 ×3; 71045; 71275; 72131; 73502; 80048 ×2; 80053; 81003; 82550; 83605 ×3; 83735; 84443; 84484; 85025 ×3; 85652; 86140; 87040 ×2; 88104; 93005; 93971; 96361 ×4; 96365; 96372 ×3; 96375 ×3; 96376 ×3; 99285; A9270 ×16; G0378 ×3; J0696 ×3; J1650 ×3; J1885; J2060; J2270 ×3; J7040 ×10; J7050 ×3; Q9967; 96374; 97161-GP

== ENCOUNTER 2019-04-22 17:54 | Emergency (ER) | payer MEDICARE, BC ==
[2019-04-22] MEDS ORDERED: Ondansetron 4 MG/2 ML SDV IVPUSH ONE (18:12)
[2019-04-22] MEDS ORDERED: HYDROmorphone 1 MG/ML Syringe IVPUSH ONE ×2 (18:12→19:26)
[2019-04-22] MEDS ORDERED: Sodium Chloride 0.9% 1,000 ML IV SCH (18:15)
--- NOTE | 2019-04-22 18:20 | EDM.PDOC ---
ED HPI GENERAL MEDICAL PROBLEM - General Chief Complaint: General Stated Complaint: PAIN Time Seen by Provider: 04/22/19 18:04 - History of Present Illness INITIAL COMMENTS - FREE TEXT/NARRATIVE: HISTORY AND PHYSICAL: History of present illness: Patient 63-year-old white female with history of mediastinal mass and presumptive metastatic disease who is awaiting referral to [facility] in [place] who presents with a concern of right femur and hip pain this was one of the areas of concern recently revealed on a PET scan. Patient denies shortness of breath nausea vomiting states she was admitted approximately 1 week prior for pain management Review of systems: As per history of present illness and below otherwise all systems reviewed and negative. Past medical history: As per history of present illness and as reviewed below otherwise noncontributory. Surgical history: As per history of present illness and as reviewed below otherwise noncontributory. Social history: No reported history of drug or alcohol abuse. Family history: As per history of present illness and as reviewed below otherwise noncontributory. Physical exam: HEENT: Atraumatic, normocephalic, pupils reactive, negative for conjunctival pallor or scleral icterus, mucous membranes dry, throat clear, neck supple, nontender, trachea midline. Lungs: Clear to auscultation, breath sounds equal bilaterally, chest nontender. Heart: S1S2, regular, negative for clicks, rubs, or JVD. Abdomen: Soft, nondistended, nontender. Negative for masses or hepatosplenomegaly. Negative for costovertebral tenderness. Pelvis: Stable nontender. Genitourinary: Deferred. Rectal: Deferred. Extremities: Atraumatic, negative for cords or calf pain. Neurovascular unremarkable. No gross deformity mild tenderness to palpation of her right hip no crepitus neurovascular exam unremarkable Neuro: Awake, alert, oriented. Cranial nerves II through XII unremarkable. Cerebellum unremarkable. Motor and sensory unremarkable throughout. Exam nonfocal. Diagnostics: CBC CMP x-ray right femur hip pelvis and chest Therapeutics: Saline 1 L bolus Dilaudid 1 mg IV Zofran 4 mg IV Impression: #1 mediastinal mass #2 probable metastatic disease #3 right hip pain Definitive disposition and diagnosis as appropriate pending reevaluation and review of above. - Related Data Allergies Allergy/AdvReac Type Severity Reaction Status Date / Time aspirin Allergy Hives Verified 04/22/19 18:18 Home Meds: Home Meds Losartan Potassium 50 mg PO QAM 05/29/18 [History] Rosuvastatin Calcium 10 mg PO BEDTIME 05/29/18 [History] Famotidine 20 mg PO BID 04/11/19 [History] Nortriptyline 10 mg PO BEDTIME 04/11/19 [History] Acetaminophen/HYDROcodone [[place] 325-5 MG] 1 tab PO Q6H PRN #20 tablet 04/15/19 [Rx] Cyclobenzaprine [Flexeril] 5 mg PO TID PRN #20 tablet 04/15/19 [Rx] Past Medical History HEENT History: Reports: Cataract Cardiovascular History: Reports: High Cholesterol, Hypertension Other Respiratory History: has smoked for 40 years Gastrointestinal History: Reports: GERD Genitourinary History: Reports: None W[employer] ENG[employer]ER History: Reports: Musculoskeletal History: Reports: Back Pain, Chronic, Fracture Other Musculoskeletal History: hx of fx ribs Neurological History: Reports: Other (See Below) Other Neuro History: hx of motion sickness Endocrine/Metabolic History: Reports: None. Denies: Diabetes, Type II Hematologic History: Reports: Blood Transfusion(s) - Infectious Disease History Infectious Disease History: Reports: Chicken Pox - Past Surgical History GI Surgical History: Reports: Colonoscopy, EGD Female Surgical History: Reports: Other (See Below) Other Female Surgeries/Procedures: Laparoscopy Social & Family History - Family History Family Medical History: Noncontributory - Caffeine Use Caffeine Use: Reports: Coffee ED ROS GENERAL - Review of Systems Review Of Systems: ROS reveals no pertinent complaints other than HPI. ED EXAM, GENERAL - Physical Exam Exam: See Below (See dictation) Course - Vital Signs Last Recorded V/S: Last Vital Signs Temp 36.2 C 04/22/19 18:05 Pulse 69 04/22/19 19:06 Resp 15 04/22/19 19:06 BP 123/54 L 04/22/19 19:06 Pulse Ox 95 04/22/19 19:06 - Orders/Labs/Meds Orders: Active Orders 24 hr Category Date Time Status Chest 1V Frontal [CR] Stat Exams 04/22/19 18:13 Taken Femur Min 2V Rt [CR] Stat Exams 04/22/19 18:14 Taken Hip Min 2V or 3V w Pelvis Rt [CR] Stat Exams 04/22/19 18:14 Taken Sodium Chloride 0.9% [Normal Saline] 1,000 ml Med 04/22/19 18:15 Active IV ASDIRECTED Medication Orders Sodium Chloride (Normal Saline) 1,000 mls @ 999 mls/hr IV ASDIRECTED [facility] Last Admin: 04/22/19 18:31 Dose: 999 mls/hr Labs: Laboratory Tests 04/22/19 04/22/19 Range/Units 18:26 18:26 WBC 15.96 H (4.0-11.0) K/uL RBC 3.85 L (4.30-5.90) M/uL Hgb 11.2 L (12.0-16.0) g/dL Hct 34.1 L (36.0-46.0) % MCV 88.6 (80.0-98.0) fL MCH 29.1 (27.0-32.0) pg MCHC 32.8 (31.0-37.0) g/dL RDW Std Deviation 49.4 (28.0-62.0) fl RDW Coeff of Citlaly 16 H (11.0-15.0) % Plt Count 492 H (150-400) K/uL MPV 9.70 (7.40-12.00) fL Neut % (Auto) 66.4 (48.0-80.0) % Lymph % (Auto) 18.5 (16.0-40.0) % [place] % (Auto) 4.6 (0.0-15.0) % Eos % (Auto) 9.9 H (0.0-7.0) % Baso % (Auto) 0.6 (0.0-1.5) % Neut # (Auto) 10.6 H (1.4-5.7) K/uL Lymph # (Auto) 3.0 H (0.6-2.4) K/uL [place] # (Auto) 0.7 (0.0-0.8) K/uL Eos # (Auto) 1.6 H (0.0-0.7) K/uL Baso # (Auto) 0.1 (0.0-0.1) K/uL Nucleated RBC % 0.0 /100WBC Nucleated RBCs # 0 K/uL Sodium 139 (136-145) mmol/L Potassium 4.0 (3.5-5.1) mmol/L Chloride 102 (98-107) mmol/L Carbon Dioxide 26.9 (21.0-32.0) mmol/L BUN 17 (7.0-18.0) mg/dL Creatinine 0.9 (0.6-1.0) mg/dL Est Cr Clr Drug Dosing 52.66 mL/min Estimated GFR (MDRD) > 60.0 ml/min Glucose 185 H (74-106) mg/dL Calcium 10.2 H (8.5-10.1) mg/dL Total Bilirubin 0.1 L (0.2-1.0) mg/dL AST 45 H (15-37) IU/L ALT 23 (14-63) IU/L Alkaline Phosphatase 168 H (46-116) U/L Total Protein 7.0 (6.4-8.2) g/dL Albumin 2.6 L (3.4-5.0) g/dL Globulin 4.4 H (2.6-4.0) g/dL Albumin/Globulin Ratio 0.6 L (0.9-1.6) Meds: Medications Generic Name Dose Route Start Last Admin Trade Name Freq PRN Reason Stop Dose Admin Sodium Chloride 1,000 mls @ 999 mls/hr 04/22/19 18:15 04/22/19 18:31 Normal Saline IV 999 mls/hr ASDIRECTED [facility] Administration Discontinued Medications Generic Name Dose Route Start Last Admin Trade Name Freq PRN Reason Stop Dose Admin Hydromorphone HCl 1 mg 04/22/19 18:12 04/22/19 18:33 Dilaudid IVPUSH 04/22/19 18:13 1 mg ONETIME ONE Administration Ondansetron HCl 4 mg 04/22/19 18:12 04/22/19 18:31 Zofran IVPUSH 04/22/19 18:13 4 mg ONETIME ONE Administration Departure - Departure Time of Disposition: 19:25 Disposition: Home, Self-Care 01 Condition: Good Clinical Impression: Mediastinal mass, Chronic pain - Discharge Information Referrals: PCP,Unknown [Primary Care Provider] - Forms: ED Department Discharge Additional Instructions: The following information is given to patients seen in the emergency department who are being discharged to home. This information is to outline your options for follow-up care. We provide all patients seen in our emergency department with a follow-up referral. The need for follow-up, as well as the timing and circumstances, are variable depending upon the specifics of your emergency department visit. If you don't have a primary care physician on staff, we will provide you with a referral. We always advise you to contact your personal physician following an emergency department visit to inform them of the circumstance of the visit and for follow-up with them and/or the need for any referrals to a consulting specialist. The emergency department will also refer you to a specialist when appropriate. This referral assures that you have the opportunity for followup care with a specialist. All of these measure are taken in an effort to provide you with optimal care, which includes your followup. Under all circumstances we always encourage you to contact your private physician who remains a resource for coordinating your care. When calling for followup care, please make the office aware that this follow-up is from your recent emergency room visit. If for any reason you are refused follow-up, please contact the [facility] emergency department at and asked to speak to the emergency department charge nurse. Continue current meds follow-up primary medical doctor as discussed return as needed as discussed - My Orders Last 24 Hours: My Active Orders 04/22/19 18:13 Chest 1V Frontal [CR] Stat 04/22/19 18:14 Femur Min 2V Rt [CR] Stat Hip Min 2V or 3V w Pelvis Rt [CR] Stat 04/22/19 18:15 Sodium Chloride 0.9% [Normal Saline] 1,000 ml IV ASDIRECTED - Assessment/Plan Last 24 Hours: My Active Orders 04/22/19 18:13 Chest 1V Frontal [CR] Stat 04/22/19 18:14 Femur Min 2V Rt [CR] Stat Hip Min 2V or 3V w Pelvis Rt [CR] Stat 04/22/19 18:15 Sodium Chloride 0.9% [Normal Saline] 1,000 ml IV ASDIRECTED
[2019-04-22 19:04] LABS: BLOOD UREA NITROGEN,BUN 17 mg/dL (7.0-18.0); CARBON DIOXIDE,CO2 26.9 mmol/L (21.0-32.0); CHLORIDE,CL 102 mmol/L (98-107); GLUCOSE RANDOM 185 mg/dL (74-106); SODIUM,NA 139 mmol/L (136-145)
--- NOTE | 2019-04-22 20:18 | CR ---
INDICATION: Mediastinal mass TECHNIQUE: Chest 1 views COMPARISON: Chest x-ray 04/11/2019 FINDINGS: Cardiovascular and mediastinum: Normal heart size with atherosclerotic calcification. Upper mediastinal soft tissue density redemonstrated, similar to the prior exam. Lungs and pleural spaces: Lungs are clear. No sign of infiltrate or mass. No sign of pleural effusion. No pneumothorax. Bones and soft tissues: No significant findings. IMPRESSION: 1. No acute pulmonary consolidation. 2. Upper mediastinal mass re-demonstrated without significant interval change compared to the study 11 days prior. Dictated by Kaiden Nichols MD @ Apr 22 2019 8:14PM Signed by Dr. Kaiden Nichols @ Apr 22 2019 8:16PM
--- NOTE | 2019-04-22 20:20 | CR ---
Indication: Pain Technique: Two views, 4 films Comparison: None Findings: Bones: Alignment is normal. No fractures or bone lesions. Joint spaces: Unremarkable. Soft tissues: Unremarkable. Dictated by Kaiden Nichols MD @ Apr 22 2019 8:16PM Signed by Dr. Kaiden Nichols @ Apr 22 2019 8:19PM
--- NOTE | 2019-04-22 20:20 | CR ---
Indication: Hip pain Technique: Pelvis and right hip 3 views Comparison: None Findings: Bones: Alignment is normal. No fractures or bone lesions. Joint spaces: Joint spaces are preserved. No degenerative changes. Soft tissues: Unremarkable. Impression: Unremarkable right hip series. Dictated by Kaiden Nichols MD @ Apr 22 2019 8:16PM Signed by Dr. Kaiden Nichols @ Apr 22 2019 8:19PM
== END 2019-04-22 19:53 | disposition home or self-care (01) ==
LOC: MW.ED 17:54
DX: M25.551 Pain in right hip (principal); G89.29 Other chronic pain; J98.59 Other diseases of mediastinum, not elsewhere classified; I10 Essential (primary) hypertension; E78.00 Pure hypercholesterolemia, unspecified; Z79.899 Other long term (current) drug therapy; Z87.891 Personal history of nicotine dependence; Z88.6 Allergy status to analgesic agent
CPT/HCPCS: 36415; 71045; 73502; 73552; 80053; 85025; 96361; 96374; 96375; 96376; 99283; J1170; J2405; J7040